=== PATIENT | male | born 1965 | race Caucasian/White ===

== ENCOUNTER 2020-05-04 01:09 | Emergency (ER) | payer OTHER, SELFPAY ==
[2020-05-04 01:13] VITALS: BP 152/87; PULSE 106; RESP 22; TEMP 37.2; O2SAT 99; BMI 50.0
--- NOTE | 2020-05-04 01:45 | ED_ITS ---
HPI - Back Pain/Injury General Chief Complaint: Back Pain/Injury Stated Complaint: Back Pain Time Seen by Provider: 05/04/20 01:44 Source: patient Mode of arrival: ambulatory Limitations: no limitations History of Present Illness HPI Narrative: Patient obese 350 lb noticed lower lumbar pain after showing his car out of snow 2 days ago pain is getting worse no radiation of pain to the legs no bowel or bladder incontinence patient on Suboxone and pain is not getting better patient has chronic lymphedema of the legs which are stable denied any rib pain but feels short of breath , because of pain in lower back. patient denies any rib pain as such MD elicited complaint: back pain Pertinent past history: recent trauma Onset (ago): day(s) (2) Timing: constant Severity: moderate Similar Symptoms Previously: No Quality: dull Location: lumbar spine Radiation: other (Lower back) Exacerbating factors: movement Relieving factors: none Related Data Home Medications Medication Instructions Recorded Confirmed buprenorphine 8 mg-naloxone 2 mg 0 mg SUBLINGUAL 02/20/20 sublingual film bupropion HCl 100 mg tablet,12 hr 100 mg PO QAM 02/20/20 sustained-release bupropion HCl 150 mg tablet,12 hr 150 mg PO QAM 02/20/20 sustained-release duloxetine 30 mg capsule,delayed 30 mg PO DAILY 02/20/20 release duloxetine 60 mg capsule,delayed 60 mg PO DAILY 02/20/20 release ibuprofen 800 mg tablet 800 mg PO TID 02/20/20 levofloxacin 750 mg tablet 750 mg PO DAILY 02/20/20 levothyroxine 88 mcg tablet 88 mcg PO DAILY 02/20/20 lisinopril 20 mg tablet mg PO 02/20/20 meclizine 25 mg tablet 25 mg PO TID PRN 02/20/20 methocarbamol 750 mg tablet 750 mg PO TID 02/20/20 Previous Rx's Medication Instructions Recorded doxycycline hyclate 100 mg tablet 100 mg PO BID #20 tab 02/20/20 prednisone 60 mg PO DAILY #15 tab 05/04/20 tramadol 50 mg PO Q6H PRN #20 tab 05/04/20 Allergies Allergy/AdvReac Type Severity Reaction Status Date / Time allopurinol [ALLOPURINOL] Allergy Unknown RASH Unverified 02/20/20 14:29 blueberry [BLUEBERRY] Allergy Unknown UNKNOWN Unverified 10/12/20 14:29 latex [LATEX] Allergy Unknown RASH Unverified 02/20/20 14:29 DRAGON FRUIT Allergy Unknown HIVES Uncoded 02/20/20 14:29 dragon fruit Allergy Unknown unknown Uncoded 02/20/20 14:29 sports tape Allergy Unknown unknown Uncoded 02/20/20 14:29 Review of Systems Review of Systems: Constitutional : No Weight loss, No Fever, No Chills ENT/Mouth : No sore throat, No Rhinorrhea Eyes: No Eye Pain, No Swelling Cardiovascular : No Chest Pain, no palpitations Respiratory : No Cough, No Sputum, no shortness of breath Gastrointestinal : no Nausea, No Vomiting, No Diarrhea, No abdominal Pain, no black stools Genitourinary : No Dysuria, No Urinary Frequency Musculoskeletal : No joint pain, No Myalgias, No Joint Swelling Skin : No Skin Lesions, No rash chronic lymphedema bilateral legs Neuro : No Weakness, No Numbness, No Dizziness, No Headache Psych : No Anxiety/Panic, No Depression Heme/Lymph: No Bruising, No Lymphadenopathy Endocrine : No Polyuria, No Polydipsia All other systems reviewed and are negative [facility] Social History Social History Advance Directives: No Advance Directives Information Provided: No Physical Exam Vital Signs: Vital Signs: Last Vital Signs Temp 98.9 F 05/04/20 01:13 Pulse 106 H 05/04/20 01:13 Resp 18 05/04/20 02:49 BP 152/87 H 05/04/20 01:13 Pulse Ox 99 05/04/20 01:13 Body Mass Index 50.0 Const: General: acute distress moderate Nutritional Appearance: obese and overweight Orientation/consciousness: oriented to person, oriented to place, oriented to time and patient oriented x3 HENMT: Head: Yes normal to inspection, Yes normocephalic and Yes atraumatic Eyes: General: appearance normal, both eyes and all related structures Neck: Neck: Yes normal visual inspection and Yes full ROM Chest: Chest palpation & inspection: normal inspection of the chest, normal palpation of entire chest wall, no crepitus and no localized rib tenderness Resp: Effort & Inspection: normal respiratory effort Auscultation: clear to auscultation bilaterally, no crackles and no rales Cardio: Palpation: normal PMI Rate: regular rate Rhythm: regular rhythm Heart sounds: S1 normal heart sound present and S2 normal heart sound present GI: Inspection: Yes normal to inspection Palpation (GI): Soft to palpation and nontender : General: Yes no CVA tenderness Back/Spine/Pelvis: Back: no CVA tenderness Thoracic/Lumbar Spine: straight leg raise negative bilaterally, thoraco-lumbar spasm, No thoracic spinal tenderness, lumbar spinal tenderness at L3 and at L4 and No straight leg raise positive Pelvis: no pain with anterior-posterior compression Neuro: General: oriented to person, oriented to place, oriented to time, patient oriented x3, gait normal, tone normal, moves all extremities and Normal light touch and pain sensation Extrem: General: Yes pedal edema (Lymphedema bilateral 4+) Course Course Course Narrative: Patient status post mechanical fall with questionable T11 subcortical changes no acute fracture no height loss no neuro deficit patient is ambulatory in the ER will discharge patient home advised to follow with PCP MDM - Back Pain/Injury Medical Records Attestation: I reviewed the patient's medical records. Lab Data Attestation: I reviewed the patient's lab results. Labs: Lab Results 05/04/20 Range/Units 02:55 Urine Color YELLOW Urine Appearance CLEAR Urine pH 6.0 (5.0-8.0) Ur Specific [place] 1.020 (1.005-1.025) Urine Protein NEG (NEG-TRACE) MG/DL Urine Glucose (UA) NEG (NEG) MG/DL Urine Ketones NEG (NEG) MG/DL Urine Blood NEG (NEG) Urine Nitrite NEG (NEG) Ur Leukocyte Esterase NEG (NEG) Discharge Plan Discharge Clinical Impression: Strain of lumbar region Qualifiers: Encounter type: initial encounter Qualified Code(s): S39.012A - Strain of muscle, fascia and tendon of lower back, initial encounter Patient Disposition: Home, Self-Care Instructions: Acute Low Back Pain (ED) Additional Instructions: apply ICE, continue pain medication take muscle relaxant and prednisone as advised follow with PCP Prescriptions: New prednisone 20 mg tablet 60 mg PO DAILY Qty: 15 RF: 0 tramadol 50 mg tablet 50 mg PO Q6H PRN (Reason: pain) Qty: 20 RF: 0 No Action lisinopril 20 mg tablet PO RF: 0 buprenorphine-naloxone 8-2 mg film 0 mg sublingual RF: 0 bupropion HCl 150 mg tablet sustained-release 12 hr 150 mg PO QAM RF: 0 duloxetine 30 mg capsule,delayed release(DR/EC) 30 mg PO DAILY RF: 0 bupropion HCl 100 mg tablet sustained-release 12 hr 100 mg PO QAM RF: 0 methocarbamol 750 mg tablet 750 mg PO TID RF: 0 ibuprofen 800 mg tablet 800 mg PO TID RF: 0 levofloxacin 750 mg tablet 750 mg PO DAILY RF: 0 meclizine 25 mg tablet 25 mg PO TID PRNRF: 0 duloxetine 60 mg capsule,delayed release(DR/EC) 60 mg PO DAILY RF: 0 levothyroxine 88 mcg tablet 88 mcg PO DAILY RF: 0 doxycycline hyclate 100 mg tablet 100 mg PO BID Qty: 20 RF: 0
--- NOTE | 2020-05-04 02:21 | CT_ITS ---
EXAMINATION: CT LUMBAR SPINE WITHOUT CONTRAST CLINICAL INFORMATION: Pain after fall. COMPARISON: Chest CT from 01/08/2019. TECHNIQUE: Contiguous helical images of the lumbar spine were obtained without IV contrast. Multiplanar constructions were performed. This CT examination was performed using dose optimization techniques as appropriate, variously including the following: *Automated exposure control *Adjustment of mA and/or kV according to patient size (this includes techniques or standardized protocols for targeted exams where dose is matched to indication/reason for exam; i.e. extremities or head) *Use of iterative reconstruction technique DLP; 1596 mGy-cm FINDINGS: The visualized lung bases are clear. There is no abdominal free fluid. Visualized unopacified loops of small amount bowel are unremarkable. There are a few layering foci of high density within the gallbladder lumen. There is no gallbladder wall thickening or pericholecystic fluid. Both kidneys are of normal size and attenuation without hydronephrosis or nephrolithiasis. The lumbar vertebra are in normal alignment. Disc heights and vertebral body heights are well-preserved. There is subtle cortical irregularity to the superior endplate of T11 without demonstrable height loss. There is quite subtle anterior vertebral body cortical buckling. CT/CT lumbar spine wo con IMPRESSION: Quite subtle cortical irregularity to the superior endplate and superior aspect of the anterior cortex to the T11 vertebral body. There is no vertebral body height loss or adjacent soft tissue swelling. A subtle fracture is difficult to exclude at this level. Overall, lower thoracic and lumbar spine vertebral body and disc heights are well-preserved.
--- NOTE | 2020-05-04 02:21 | XR_ITS ---
EXAMINATION: CHEST 2 VIEWS CLINICAL INFORMATION: Pain after fall. COMPARISON: 01/08/2019. TECHNIQUE: PA and lateral views of the chest were obtained. FINDINGS: The cardiac silhouette is not enlarged. The mediastinal and hilar contours are unremarkable. There are neither pleural effusions nor pneumothoraces. There is a stable appearance of mild interstitial prominence throughout both lungs. There are no consolidations. The osseous structures are stable. XR/XR chest 2V IMPRESSION: No evidence for acute disease.
[2020-05-04 02:49] VITALS: RESP 18
[2020-05-04] MEDS: Morphine Sulfate 10 MG/ML CARTRIDGE IM (02:49)
[2020-05-04] MEDS: dexAMETHasone 2 MG TABLET 10 MG PO (02:50)
[2020-05-04 03:12] LABS: Glucose Urine UA NEG (NEG); Leukocyte Esterase Urine NEG (NEG); Nitrite Urine NEG (NEG); Urine Blood NEG (NEG); Urine Ketones NEG (NEG); Urine Protein NEG (NEG-TRACE)
[2020-05-04 03:28] LABS: Appearance Urine CLEAR; Color Urine YELLOW
[2020-05-04 04:00] VITALS: BP 147/69; PULSE 87; RESP 22; TEMP 37.2; O2SAT 96
== END 2020-05-04 05:00 | disposition home or self-care (01) ==
PROVIDERS: Emergency Provider Internal Medicine; PCP Internal Medicine
DX: S39.012A Strain of muscle, fascia and tendon of lower back, initial encounter (principal); X50.9XXA Other and unspecified overexertion or strenuous movements or postures, initial encounter; Y93.H1 Activity, digging, shoveling and raking; Y92.007 Garden or yard of unspecified non-institutional (private) residence as the place of occurrence of the external cause; Y99.9 Unspecified external cause status; Z79.899 Other long term (current) drug therapy
CPT/HCPCS: 71046; 72131; 81003; 96372; 99284; J2270; J8540

== ENCOUNTER 2020-05-08 13:29 | Emergency (ER) | payer OTHER, SELFPAY ==
[2020-05-08 13:47] VITALS: BP 150/83; PULSE 76; RESP 16; TEMP 36.6; O2SAT 96; BMI 50.0
--- NOTE | 2020-05-08 13:55 | ED_ITS ---
HPI - Back Pain/Injury General Chief Complaint: Back Pain/Injury Stated Complaint: BACK SPASM Time Seen by Provider: 05/08/20 13:44 History of Present Illness HPI Narrative: Patient complains of back spasms for the last several days, he was here on May 04 after a fall which caused him to have lower back pain any came to the ER and at that time he had a CT scan of the lumbar spine which was negative for any fracture and he was treated with pain medicine and was able to ambulate and go home, he has a cane at home and was using that Today he was walking with his cane and felt a lot of spasm in his lower back and the pain was sharp and he had to lower himself to the floor, he could not get up and was stuck there for about 2 hours and then decided to call 911 and was transported here by EMT is a with severe back spasm He denies numbness weakness paresthesias, there is no new injury, no head injury no neck pain, no changes to bowel or bladder, no incontinence Related Data Home Medications Medication Instructions Recorded Confirmed buprenorphine 8 mg-naloxone 2 mg 0 mg SUBLINGUAL 02/20/20 sublingual film bupropion HCl 100 mg tablet,12 hr 100 mg PO QAM 02/20/20 sustained-release bupropion HCl 150 mg tablet,12 hr 150 mg PO QAM 02/20/20 sustained-release duloxetine 30 mg capsule,delayed 30 mg PO DAILY 02/20/20 release duloxetine 60 mg capsule,delayed 60 mg PO DAILY 02/20/20 release ibuprofen 800 mg tablet 800 mg PO TID 02/20/20 levofloxacin 750 mg tablet 750 mg PO DAILY 02/20/20 levothyroxine 88 mcg tablet 88 mcg PO DAILY 02/20/20 lisinopril 20 mg tablet mg PO 02/20/20 meclizine 25 mg tablet 25 mg PO TID PRN 02/20/20 methocarbamol 750 mg tablet 750 mg PO TID 02/20/20 Previous Rx's Medication Instructions Recorded doxycycline hyclate 100 mg tablet 100 mg PO BID #20 tab 02/20/20 prednisone 60 mg PO DAILY #15 tab 05/04/20 tramadol 50 mg PO Q6H PRN #20 tab 05/04/20 diazepam [Valium] 10 mg PO TID PRN #10 tab 05/08/20 oxycodone-acetaminophen [Percocet] 1 tab PO Q6H PRN #14 tab 05/08/20 walker #1 ea 05/08/20 Allergies Allergy/AdvReac Type Severity Reaction Status Date / Time allopurinol [ALLOPURINOL] Allergy Unknown RASH Verified 05/08/20 16:27 blueberry [BLUEBERRY] Allergy Unknown UNKNOWN Verified 05/08/20 16:27 latex [LATEX] Allergy Unknown RASH Verified 05/08/20 16:27 DRAGON FRUIT Allergy Unknown HIVES Uncoded 02/20/20 14:29 dragon fruit Allergy Unknown unknown Uncoded 02/20/20 14:29 sports tape Allergy Unknown unknown Uncoded 02/20/20 14:29 Review of Systems Review of Systems: Positive for back pain No numbness no weakness no paresthesias no changes to bowel or bladder no incontinence no head injury no headache no neck pain no rib pain no difficulty breathing no chest pain no abdominal pain Yes all other systems are reviewed and are negative [facility] Past Medical History Attestation statement: The following information was validated with the patient. [facility] Narrative: Back pain, obesity Source: nursing notes reviewed Social History Social History Alcohol intake: never Smoking Status: Former smoker Use of substances other than those prescribed or required for medical reasons: No Advance Directives: No Advance Directives Information Provided: Yes Physical Exam Vital Signs: Vital Signs: Last Vital Signs Temp 98 F 05/08/20 13:47 Pulse 80 05/08/20 16:00 Resp 18 05/08/20 16:00 BP 136/80 05/08/20 16:00 Pulse Ox 95 05/08/20 16:00 Body Mass Index 50.0 Patient is A&O x3, cooperative but uncomfortable Head is normocephalic atraumatic Neck is supple and nontender The chest is nontender with clear full symmetric equal breath sounds The abdomen is soft nontender The back had bilateral paraspinal tenderness there was no focal tenderness of any vertebrae there was no CVA tenderness there is no ecchymosis to the back, the skin was intact, pain was easily reproduced with movement but when patient finds a comfortable position lying down he is comfortable The skin was intact with no rash Extremities there is bilateral lymphedema in legs, full range of motion x4 Neuro no focal deficit his speech is appropriate interaction is normal, motor is 5/5 x4, gait could not be tested as it was too painful to get out of bed Course Course Course Narrative: The patient was treated with analgesics and muscle relaxer and felt significantly improved and was able to sit up stand up and ambulate with a walker safely He had initially inquired about going to a rehab but when informed that he would have to stay in the ER overnight as physical therapy assessment and finding a placement could not happen at this hour of the day he said he would try at home, and was discharged improved and able to ambulate safely with a walker Discharge Plan Discharge Clinical Impression: Strain of lumbar region Qualifiers: Encounter type: subsequent encounter Qualified Code(s): S39.012D - Strain of muscle, fascia and tendon of lower back, subsequent encounter Patient Disposition: Home, Self-Care Additional Instructions: We could not get you into a rehab today so we are trying to get you home with pain medication and muscle spasm medication You can return any time for any worse condition or concerns If you are unable to function safely at home you can return any time Prescriptions: New (DME) walker Misc See Rx Instructions .ROUTE .MEDSUPPLY Qty: 1 RF: 0 oxycodone-acetaminophen [Percocet] 5-325 mg tablet 1 tab PO Q6H PRN (Reason: pain) Qty: 14 RF: 0 diazepam [Valium] 10 mg tablet 10 mg PO TID PRN (Reason: muscle spasm) Qty: 10 RF: 0 No Action prednisone 20 mg tablet 60 mg PO DAILY Qty: 15 RF: 0 tramadol 50 mg tablet 50 mg PO Q6H PRN (Reason: pain) Qty: 20 RF: 0 lisinopril 20 mg tablet PO RF: 0 buprenorphine-naloxone 8-2 mg film 0 mg sublingual RF: 0 bupropion HCl 150 mg tablet sustained-release 12 hr 150 mg PO QAM RF: 0 duloxetine 30 mg capsule,delayed release(DR/EC) 30 mg PO DAILY RF: 0 bupropion HCl 100 mg tablet sustained-release 12 hr 100 mg PO QAM RF: 0 methocarbamol 750 mg tablet 750 mg PO TID RF: 0 ibuprofen 800 mg tablet 800 mg PO TID RF: 0 levofloxacin 750 mg tablet 750 mg PO DAILY RF: 0 meclizine 25 mg tablet 25 mg PO TID PRNRF: 0 duloxetine 60 mg capsule,delayed release(DR/EC) 60 mg PO DAILY RF: 0 levothyroxine 88 mcg tablet 88 mcg PO DAILY RF: 0 doxycycline hyclate 100 mg tablet 100 mg PO BID Qty: 20 RF: 0
[2020-05-08 14:00] VITALS: BP 150/83; PULSE 70; RESP 18; O2SAT 98
[2020-05-08] MEDS: oxyCODONE HCl Immed Release 5 MG TABLET 10 MG PO (14:45)
[2020-05-08] MEDS: diazePAM 5 MG TABLET 10 MG PO (14:49)
--- NOTE | 2020-05-08 15:02 | PC.NURSE ---
Report received from Jose VELIZ. Patient reports 4/10 pain without movement at this time. Patient appears uncomfortable when moving. Respirations regular and even. Skin PWD. Will continue to monitor.
[2020-05-08 16:00] VITALS: BP 136/80; PULSE 80; RESP 18; O2SAT 95
--- NOTE | 2020-05-08 16:13 | PC.NURSE ---
Addendum entered by Karin Norris 05/08/20 17:05: Patient got out of bed using walker and able to ambulate around with steady gait. Patient now choosing to be discharged home. Original Note: Attempted to get patient to try and ambulate, patient reports talking to family and is now requesting short term rehab.
[2020-05-08] MEDS: oxyCODONE HCl Immed Release 5 MG TABLET PO (16:55)
== END 2020-05-08 17:06 | disposition home or self-care (01) ==
PROVIDERS: Emergency Provider Emergency Medicine Emergency Medical Services; PCP Internal Medicine
DX: S39.012A Strain of muscle, fascia and tendon of lower back, initial encounter (principal); M54.2 Cervicalgia; X58.XXXA Exposure to other specified factors, initial encounter; Y93.9 Activity, unspecified; Y92.9 Unspecified place or not applicable; Y99.9 Unspecified external cause status; Z79.899 Other long term (current) drug therapy; Z87.891 Personal history of nicotine dependence
CPT/HCPCS: 99283; 99284

== ENCOUNTER 2020-05-12 15:59 | Emergency (ER) | payer OTHER, SELFPAY ==
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
[2020-05-12 16:24] VITALS: BP 137/87; BP 159/93; PULSE 82; RESP 22; TEMP 36.1; O2SAT 95; O2SAT 96; BMI 50.5
--- NOTE | 2020-05-12 17:13 | PC.NURSE ---
Pt changed into hospital attire and belongings searched and placed into lockers in pod by cardiac cath tech. Pt calm and cooperative at this time.
[2020-05-12 17:16] LABS: Basophils Percent Auto 0.4 % (0-2); Eosinophils Absolute Auto 0.4 X10*3/uL (0.0-0.4); Eosinophils Percent Auto 3.7 % (0-4); Hemoglobin 12.9 g/dl (14.0-18.0); Imm Gran Abs Auto 0.04 X10*3/uL (0.00-0.03); Imm Gran Pct Auto 0.4 % (0.0-0.4); Lymphocytes Absolute Auto 2.3 X10*3/uL (1.2-4.9); Lymphocytes Percent Auto 21.2 % (20-40); Mean Corpuscular HGB Conc 32.3 g/dl (31.0-36.0); Mean Corpuscular Hemoglobin 27.8 pg (27.0-33.0); Mean Corpuscular Volume 86.2 fL (80-98); Mean Platelet Volume 10.2 fL (9.4-12.4); Monocytes Absolute Auto 0.7 X10*3/uL (0.1-1.2); Monocytes Percent Auto 6.8 % (2-11); Neutrophils Absolute Auto 7.2 X10*3/uL (2.0-8.3); Neutrophils Percent Auto 67.5 % (45-73); Platelet Count 259 X10*3/uL (160-400); Red Blood Count 4.64 X10*6/uL (4.60-5.80); White Blood Count 10.6 X10*3/uL (4.8-10.8)
[2020-05-12] MEDS: diazePAM 5 MG TABLET PO ×2 (17:16→21:44)
[2020-05-12 17:18] LABS: MANUAL DIFF FLAG NO
[2020-05-12 17:31] LABS: COVID-19 Test Negative (Negative)
[2020-05-12 17:40] LABS: Alanine Aminotransferase 22 U/L (0-40); Albumin Level 3.5 g/dL (3.5-5.0); Alkaline Phosphatase 60 U/L (39-117); Anion Gap 14 (12-20); Aspartate Amino Transferase 16 U/L (5-37); Bilirubin Direct 0.3 mg/dL (0.0-0.5); Bilirubin Total 0.5 mg/dL (0.0-1.0); Blood Urea Nitrogen 11 mg/dL (9-16); Calcium 8.7 mg/dL (8.4-10.2); Carbon Dioxide 29 mmol/L (22-29); Chloride 99 mmol/L (96-108); Creatinine Clr Calc Pharmacy 185.3; Estimated Glomerular Filt Rate > 60; Glucose Random 118 mg/dL (60-115); Potassium 3.7 mmol/l (3.3-5.1); Sodium 138 mmol/L (135-145); Total Protein 6.5 g/dL (6.5-8.0)
--- NOTE | 2020-05-12 18:41 | PC.NURSE ---
[facility] contacted for update. Bed search in progress. Fax sent to them including results of labs obtained during this visit. Pt ate dinner and is now resting in stretcher with eyes closed.
--- NOTE | 2020-05-12 19:17 | PC.NURSE ---
Pt ambulated to bathroom with security. Steady gait using a walker.
[2020-05-12] MEDS: oxyCODONE HCl Immed Release 5 MG TABLET PO (19:31)
[2020-05-12] MEDS: Lidocaine 4 % Patch ADH..PATCH 2 PATCH TRANSDERMA (19:33)
[2020-05-12 20:00] VITALS: BP 118/81; PULSE 80; RESP 18; TEMP 36.8; O2SAT 97
--- NOTE | 2020-05-12 21:04 | PC.NURSE ---
Patient given Lido patches and oxycodone with some relief of pain, still reports painful spasms. States the Valium helped the most with that. Plan to give when due.
[2020-05-12 21:49] VITALS: BP 141/91; PULSE 78; RESP 20; TEMP 36.7; O2SAT 94
--- NOTE | 2020-05-12 22:25 | PC.NURSE ---
Urine sent down. Pt ambulated to bathroom with walker and security.
[2020-05-12 22:34] LABS: Glucose Urine UA NEG (NEG); Leukocyte Esterase Urine NEG (NEG); Nitrite Urine NEG (NEG); Specific Gravity - Urine <= 1.005 (1.005-1.025); Urine Blood NEG (NEG); Urine Ketones NEG (NEG); Urine Protein NEG (NEG-TRACE)
[2020-05-12 22:35] LABS: Appearance Urine CLEAR; Color Urine YELLOW
[2020-05-12 23:01] LABS: Amphetamine Screen Urine Not Detected (Not Detect); Barbiturates, Urine Not Detected (Not Detect); Benzodiazepines Screen Urine POSITIVE (Not Detect); Cannabinoid Screen Urine Not Detected (Not Detect); Cocaine Screen Urine Not Detected (Not Detect); Opiate Screen Urine Not Detected (Not Detect); Phencyclidine Screen Urine Not Detected (Not Detect)
--- NOTE | 2020-05-12 23:03 | PC.NURSE ---
Report received. PT is laying in bed quietly. Calm and cooperative. PT is inpatient bed search.
[2020-05-13] VITALS (9 sets, daily range): BP systolic 131–151; BP diastolic 68–94; PULSE 18–92; RESP 14–18; TEMP 36.4–37.1; O2SAT 92–96
[2020-05-13] MEDS: oxyCODONE HCl Immed Release 5 MG TABLET PO ×3 (03:00→17:32)
[2020-05-13] MEDS: diazePAM 5 MG TABLET PO ×2 (04:14→11:59)
--- NOTE | 2020-05-13 06:56 | PC.NURSE ---
PT complaining of back spasms this morning. PRN diazepam was not available. Provider notified and ordered one time dose that should count towards his first dose for today. Med given to PT.
--- NOTE | 2020-05-13 07:05 | PC.NURSE ---
REPORT TAKEN FORM LAUREN VELIZ. PT SLEEPING AT THIS TIME. STAFF ABLE TO SEE PATIENT AT ALL TIMES.
--- NOTE | 2020-05-13 11:39 | PC.NURSE ---
patient a&ox3, currently watching tv, vitals stable, pt states his back continues to hurt and nothing really helps it 12/18 pain, will continue to monitor
--- NOTE | 2020-05-13 11:56 | PC.NURSE ---
patient ambulated with stby assist and walker to bathroom, patient c/o 12/18 lower back pain/spasms
--- NOTE | 2020-05-13 12:01 | PC.NURSE ---
PT MEDICATED WITH VALIUM PER ORDER, PT ALSO NO LONGER HAS LIDO PATCHES ON BACK- THEY HAD BEEN PREVIOUSLY REMOVED.
--- NOTE | 2020-05-13 16:28 | PC.NURSE ---
patient currently sleeping, RR 18
--- NOTE | 2020-05-13 17:35 | PC.NURSE ---
patient oob to chair with assist, medicated for pain, vss, will continue to monitor.
--- NOTE | 2020-05-13 22:09 | PC.NURSE ---
patient currently sleeping, sitter at bedside, rr 18, will continue to monitor.
[2020-05-14] VITALS (10 sets, daily range): BP systolic 116–142; BP diastolic 65–88; PULSE 16–89; RESP 14–18; TEMP 36.3–36.5; O2SAT 94–96
[2020-05-14] MEDS: oxyCODONE HCl Immed Release 5 MG TABLET PO ×2 (06:20→12:46)
[2020-05-14] MEDS: diazePAM 10 MG TABLET PO (06:20)
[2020-05-14] MEDS: buPROPion HCl XL 150 MG TAB.ER.24H PO (10:31)
[2020-05-14] MEDS: DULoxetine HCl 30 MG CAPSULE.DR PO (10:31)
[2020-05-14] MEDS: lisinopriL 20 MG TABLET PO (10:32)
[2020-05-14] MEDS: Levothyroxine Sodium 88 MCG TABLET PO (10:32)
[2020-05-14] MEDS: Cyclobenzaprine HCl 10 MG TABLET PO (10:32)
[2020-05-14] MEDS: DULoxetine HCl 60 MG CAPSULE.DR PO (10:32)
[2020-05-14] MEDS: diazePAM 5 MG TABLET PO (12:47)
--- NOTE | 2020-05-14 17:33 | PC.NURSE ---
Pt is drwsy but easily arousable. pt has been evaluated by care team, there are concerns over pt's adl ability due to recent back injury and his appropriatness for m5. plan is to have Physical therapy eval in am. sitter is maintained at bedside pt denies need to use bathroom at this time. pt is clam and cooperative, speaks in clear and even tones and mainitains appropRIATE EYE CONTACT.
--- NOTE | 2020-05-14 21:01 | PC.NURSE ---
pt wakes to voice, looks at clock and is surprised by the time. he states wow, yariel been sleeping a long time. pt didn't realize he hadn't had dinner, will reheat his tray.
--- NOTE | 2020-05-14 21:55 | PC.NURSE ---
PT FALLING ASLEEP EATING DINNER, WILL HOLD FLEXERIL.
[2020-05-14] MEDS: Docusate Sodium 100 MG CAPSULE PO (23:22)
--- NOTE | 2020-05-14 23:56 | PC.NURSE ---
PT DOES NOT FEEL HE NEEDS OXY OR FLEXERIL AT THIS TIME, LIDO PATCH X2 APPLIED TO BACK.
[2020-05-14] MEDS: Lidocaine 4 % Patch ADH..PATCH 1 PATCH TRANSDERMA (23:57)
[2020-05-15] VITALS (8 sets, daily range): BP systolic 113–133; BP diastolic 61–81; PULSE 79–93; RESP 16–18; TEMP 36.4–36.6; O2SAT 92–97
[2020-05-15] MEDS: oxyCODONE HCl Immed Release 5 MG TABLET PO ×2 (02:25→09:16)
[2020-05-15] MEDS: buPROPion HCl XL 150 MG TAB.ER.24H PO (09:15)
[2020-05-15] MEDS: DULoxetine HCl 30 MG CAPSULE.DR PO (09:15)
[2020-05-15] MEDS: Levothyroxine Sodium 88 MCG TABLET PO (09:15)
[2020-05-15] MEDS: Docusate Sodium 100 MG CAPSULE PO ×2 (09:16→21:48)
[2020-05-15] MEDS: lisinopriL 20 MG TABLET PO (09:16)
[2020-05-15] MEDS: DULoxetine HCl 60 MG CAPSULE.DR PO (09:16)
--- NOTE | 2020-05-15 15:06 | MHC.CM.ED ---
Received case management consult. Patient came to ER on 05/12 due to SI. Patient was cleared by N. Patient experienced a compression fracture on 05/03 from slipping while shoveling. Patient has been on Suboxone for chronic pain management. He hasn't taken his suboxone for 4 days because of requiring oxycodone for his acute fracture pain. Patient was seen by physical therapy. Short term rehab is recommended. Attempted to meet with patient. However he is sleeping. Anticipate patient will be difficult to place. Referral broadcasted in [email or web address]. [facility] is willing to offer a bed. However, due to SI, PASRR letter will be needed. Insurance auth will also need to be obtained by [employer] [employer]. [facility] is attempting to obtain insurance auth. PASRR screen completed and faxed to [facility]. Continue to monitor for d/c needs.
[2020-05-15] MEDS: Cyclobenzaprine HCl 10 MG TABLET PO ×2 (21:48→23:06)
[2020-05-16 03:15] VITALS: BP 141/85; PULSE 80; RESP 18; TEMP 36.4; O2SAT 94
[2020-05-16 04:00] VITALS: RESP 16
[2020-05-16 05:56] VITALS: BP 134/80; PULSE 86; RESP 18; TEMP 36.8; O2SAT 94
--- NOTE | 2020-05-16 06:41 | PC.NURSE ---
pt slept thur the night no distress rr even and reg. needs met at bedside sitter present.
[2020-05-16 08:28] VITALS: BP 129/74; PULSE 88
[2020-05-16] MEDS: DULoxetine HCl 60 MG CAPSULE.DR PO (08:28)
[2020-05-16] MEDS: Cyclobenzaprine HCl 10 MG TABLET PO (08:28)
[2020-05-16] MEDS: lisinopriL 20 MG TABLET PO (08:28)
[2020-05-16] MEDS: DULoxetine HCl 30 MG CAPSULE.DR PO (08:30)
[2020-05-16] MEDS: Levothyroxine Sodium 88 MCG TABLET PO (08:30)
[2020-05-16] MEDS: Docusate Sodium 100 MG CAPSULE PO (08:30)
[2020-05-16] MEDS: buPROPion HCl XL 150 MG TAB.ER.24H PO (08:30)
[2020-05-16 08:31] VITALS: BP 129/74; PULSE 88; RESP 18
--- NOTE | 2020-05-16 09:07 | MHC.CM.ED ---
Patient remains in ER. PASRR exemption letter obtained from [facility]. Still waiting for [facility] to obtain insurance. Attempted to meet with patient to explain this. Patient currently sleeping. Continue to monitor for d/c needs.
[2020-05-16 10:36] LABS: COVID-19 Test Negative (Negative); IDNOW Serial# 9DD0AD1C
--- NOTE | 2020-05-16 10:58 | MHC.CM.ED ---
Insurance auth has been obtained by [facility]. Patient can leave at 1pm, if new Covid is negative. Attempted to book transport with [facility]. They are unable to accomodate until 5pm. [facility] booked. Med nec with chart. Attempted to let patient know. Patient is currently sleeping. Patient's sister Alesia notified via telephone at [phone]. Alesia verbalized understanding. Dr Angel and Dell Ng aware. Continue to monitor for d/c needs.
[2020-05-16 11:47] VITALS: BP 145/76; PULSE 77; O2SAT 98
== END 2020-05-16 13:32 | disposition skilled nursing facility (03) ==
PROVIDERS: Emergency Provider Emergency Medicine
DX: F33.9 Major depressive disorder, recurrent, unspecified (principal); R45.851 Suicidal ideations; M62.830 Muscle spasm of back; Z20.828 Contact with and (suspected) exposure to other viral communicable diseases; I10 Essential (primary) hypertension; F43.10 Post-traumatic stress disorder, unspecified; F17.200 Nicotine dependence, unspecified, uncomplicated
CPT/HCPCS: 36415; 80048; 80076; 80307; 81003; 85025; 87635; 97162; 99285

== ENCOUNTER 2020-06-27 08:30 | Outpatient (RCR) | payer OTHER, SELFPAY ==
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
[2020-06-04 15:10] VITALS: BMI 45.0
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
--- NOTE | 2020-06-07 09:51 | PC.NURSE ---
I left a message for the clients therapist Davey Stephens to inform him that the client has started PHP. I requested a call back.
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
--- NOTE | 2020-06-18 17:05 | P.PNPSP_ITS ---
Subjective Subjective Date of Service: 06/18/20 Reason For Visit: depression Interim History: Adolfo reports a very difficult 24 hours. States yesterday his Si was the strongest it had been since 1990. He is having many PTSD like nightmares. He awoke crying, wrote a suicide note and was able to reach out to crisis and found it helpful. States he decreased Cymbalta to 60 mg, stopped Prozac, Buspirone, Wellbutrin over the last month. His desire to drink has increased, however he reports he has not broken sobriety. He denies active SI plan or intent currently. Reports racing thoughts, unable to stop or control them, some agitation hypomanic type symptoms. OP team/PHP has not refilled meds. Discussed mood stabilizer trial for mgt of SI,racing thoughts. Medication Compliance: No Side effects from medications: No Attending Groups: Yes Review of Systems Psychiatric: Reports abnormal sleep pattern (nightmares), Reports anxiety, Reports depression, Reports difficulty concentrating, Reports hopelessness and Reports mood swings Mental Status Exam Mental Status Exam Patient Orientation: Person, Place, Time and Situation Level of Consciousness: Awake and Alert Patient Behavior: Talkative Mood Description: Depressed Affect Description: Labile (reports) and Flat Patient Cognition Impaired: No Ability to Follow Directions: Good Speech Pattern: Spontaneous Speech Memory Description: Intact Hallucinations: None Delusions: Not Present Perceptual Disturbances: Depersonalization Thought Process: Racing, Distracted and Rumination Thought Content: positive for Racing, positive for [place] and positive for Circumstantial Depressive Symptoms: Increased Anxiety, Increased Irritability, Difficulty Sleeping (nightmares), Loss of Int. in Activity, Hopelessness, Unhappiness, Thoughts of /Suicide (SI intense on 06/17. Today, passive, no plan, no intent) and Loss of Energy Judgement: Fair Diagnostics Vital Signs (24Hr): Body Mass Index 45.0 Assessment & Plan Assessment & Plan (1) MDD (major depressive disorder), recurrent episode, moderate: Status: Acute Code(s): F33.1 - Major depressive disorder, recurrent, moderate Assessment and Plan: -Reports of intense SI, stopping [id number] Cymbalta 60 mg. -Discussed with pt trial of [place] 300 mg hs to assist with racing thoughts, mood stabilization, mgt of SI. He agreed. Small amt sent to pharmacy for trial. Will talk with pt again on 06/21/20. Crisis plan in place. At this time pt is able to contract for safety and will call crisis or come to ER for assessment should sx increase. Certification I certify that partial hospital treatment is medically necessary due to the sy mptoms and problems resulting from the patient's mental illness and the failure to treat the patient at the partial hospital level of care would likely result in the patient requiring inpatient psychiatric care which could not be prevented at a less intensive level of care. Greater than 50% of the session was spent on counseling and/or coordination of care Discharge Plan Discharge Attending provider: Senthil Ang Medications: New lithium carbonate 300 mg capsule 300 mg PO BEDTIME Qty: 4 RF: 0 Discontinued bupropion HCl 75 mg Tablet 75 mg PO DAILY RF: 0 duloxetine 30 mg capsule,delayed release(DR/EC) 30 mg PO DAILY RF: 0 No Action (DME) you Misc See Rx Instructions .ROUTE .MEDSUPPLY Qty: 1 RF: 0 testosterone 1.62 % (20.25 mg/1.25 gram) Gel In Packet 1 packet TRANSDERMAL DAILY RF: 0 lisinopril 20 mg tablet 20 mg PO DAILY RF: 0 methocarbamol 750 mg tablet 750 mg PO TID RF: 0 duloxetine 60 mg capsule,delayed release(DR/EC) 60 mg PO DAILY RF: 0 levothyroxine 88 mcg tablet See Rx Instructions .ROUTE .COMPLEX RF: 0 Telehealth Telehealth Location of provider rendering services: practice address Location of patient: address on file Patient Identification confirmed using: Name, : Yes Telehealth method: voice only Patient verbally consented to treatment: Yes Patient verbally consented to billing insurance company: Yes Patient informed of any privacy concerns related to visit: Yes Time spent with patient (mins): 30
--- NOTE | 2020-06-19 12:39 | PC.NURSE ---
Patient has told this abstract writer last week that his family thinks he is on too many medications. Asked patient to review with prescriber. Denied any side effects. Did not mention to this abstract writer that he needed any refills on any of his medications. Called pharmacy today. They have not filled his new prescription for [employer] that was ordered yesterday as they did not get a supply in until today. Patient last filled the following antidepressants Duloxetine 60 mg daily on 06/03/20 for 90 day supply, Fluoxetine 20 mg daily on 06/09/20 # 30 tab, Wellbutrin 75 mg daily on 06/04/20 for 7 day supply, and Trazodone 25 mg 1/2 tab daily PRN on 06/04/20 7 day supply.
--- NOTE | 2020-06-21 09:49 | PC.NURSE ---
Called Adolfo to remind him that he had lab orders that need to be completed. Patient stated his car is not working however he should be able to complete on Thursday. Patient stated he has labs done at [place] (unsure when) and thinks he had labs completed in [facility] recently. Patient did not attend [facility] yesterday as he complained to staff that he had stomach issues. He stated he had diarrhea and his sister went to the store to chicken picker some Imodium and he feels much better today. He stated she also picked up his prescription medications. He has not started [place] at present. Plans on starting once his stomach settles. C/O back pain and stated he is out of pain medications thus he has been using Motrin. Talked about interaction with Motrin and [place]. Also talked about Physical Therapy and patient stated his PCP was making a referral to PT but patient has not been contacted regarding an appointment. I let him know that I will call to f/u.
--- NOTE | 2020-06-21 16:55 | P.PNPSP_ITS ---
Subjective Subjective Date of Service: 06/21/20 Reason For Visit: depression Interim History: Adolfo reports feeling improved. He does report GI distress over the past few days which is resolving. Sleep is too good , reports he does spend a great deal of time in bed. Appetite has decreased, with weight decrease since back injury from 409 to 355. Denies SI plan or intent today. Reviewed events of last Thursday where pt reflects that there is no real reason for me to , I would never do that to my sister, my family, I do want to live a life. Describes his life as good, with needs met and feeling satisfied. Has not initiated [place] which a small rx was given due to sx presentation on Thursday. We discussed why it was given, target sx. He picked it up from pharmacy today and will hold on starting it as sx have ceased and passed. Discussed with pt calling Dr. Fowler-he believes she may be away, but authorizes underwriter solicitation director to continue to attempt to connect. Discussed Cymbalta dosing at current 60 mg vs 90 mg. He will keep it at 60mg reflecting that 90 may not be needed. Medication Compliance: Yes Side effects from medications: No Attending Groups: Yes Review of Systems Gastrointestinal: Reports other (recovering from gasteroenteritis sx over the past few days.) Psychiatric: Reports abnormal sleep pattern, Reports change in appetite and Reports depression Mental Status Exam Mental Status Exam Patient Orientation: Person, Place, Time and Situation Level of Consciousness: Awake and Alert Patient Behavior: Appropriate and Talkative Mood Description: Calm Affect Description: Flat Patient Cognition Impaired: No Ability to Follow Directions: Good Speech Pattern: Spontaneous Speech Memory Description: Intact Hallucinations: None Delusions: Not Present Thought Process: Intact Thought Content: positive for Intact Depressive Symptoms: Changes in Appetite, Sleeping More Than Usual, Significant Weight Loss (reports since back injury 409 to 355), Loss of Int. in Activity and Increased Fatigue Judgement: Good Diagnostics Vital Signs (24Hr): Body Mass Index 45.0 Assessment & Plan Assessment & Plan (1) MDD (major depressive disorder), recurrent episode, moderate: Status: Acute Code(s): F33.1 - Major depressive disorder, recurrent, moderate Assessment and Plan: -Continue Cymbalta 60 mg daily -Pt will not trial [place] as sx have resolved. -Discussed labs with pt-as he has had them with [facility] recently, will not re- order unless he requests. He does not feel it is needed at this time. Certification I certify that partial hospital treatment is medically necessary due to the symptoms and problems resulting from the patient's mental illness and the failure to treat the patient at the partial hospital level of care would likely result in the patient requiring inpatient psychiatric care which could not be prevented at a less intensive level of care. Greater than 50% of the session was spent on counseling and/or coordination of care Discharge Plan Discharge Attending provider: Senthil Ang Medications: Discontinued bupropion HCl 75 mg Tablet 75 mg PO DAILY RF: 0 duloxetine 30 mg capsule,delayed release(DR/EC) 30 mg PO DAILY RF: 0 No Action (DME) you Misc See Rx Instructions .ROUTE .MEDSUPPLY Qty: 1 RF: 0 testosterone 1.62 % (20.25 mg/1.25 gram) Gel In Packet 1 packet TRANSDERMAL DAILY RF: 0 lisinopril 20 mg tablet 20 mg PO DAILY RF: 0 methocarbamol 750 mg tablet 750 mg PO TID RF: 0 duloxetine 60 mg capsule,delayed release(DR/EC) 60 mg PO DAILY RF: 0 levothyroxine 88 mcg tablet See Rx Instructions .ROUTE .COMPLEX RF: 0 Telehealth Telehealth Location of provider rendering services: practice address Location of patient: address on file Patient Identification confirmed using: Name, : Yes Telehealth method: voice only Patient verbally consented to treatment: Yes Patient verbally consented to billing insurance company: Yes Patient informed of any privacy concerns related to visit: Yes Time spent with patient (mins): 20
--- NOTE | 2020-06-22 11:24 | PC.NURSE ---
Patient expressed interest in going to the [facility] in [place] at [phone] for physical therapy for his back pain. According to patient's paperwork from his PCP patient has a hx of a possible subtle fracture in April 2020. Patient asked me to call his PCP office to set up referral for an appointment. Spoke to Kathrin from patient's PCP's office and asked her to review with Dr Jovel the need for a referral to physical therapy and if so refer patient to the [facility].
--- NOTE | 2020-06-27 14:21 | P.PNPSP_ITS ---
Subjective Subjective Date of Service: 06/27/20 Reason For Visit: depression Interim History: [facility] program was very beneficial in that he felt supported by peers and clinicians. He reports groups help with ways to cope with depression and chronic suicidal thoughts. He reports sleep is fair in that he wakes up often but able to sleep at least 6-7hrs. He reports not having suicidal thoughts for about one week. He expresses feeling gratitude for [facility] staff and peers. Review of Systems Gastrointestinal: Reports other (recovering from gasteroenteritis sx over the past few days.) Psychiatric: Reports abnormal sleep pattern, Reports anxiety, Reports change in appetite, Reports depression, Reports difficulty concentrating, Reports hopelessness and Reports mood swings Mental Status Exam Mental Status Exam Narrative: Appearance: MO male, casually groomed, in NAD Behavior: calm, cooperative. Psychomotor: no agitation or retardation noted Speech: clear, normal rate/rhythmt, spontaneous TP: linear TC: no signs of psychosis, feeling depressed, not suicidal VH/AH: none Insight/judgment: fair x 2. Memory/cog: alert, oriented x 3. grossly intact to conversational testing. Patient Orientation: Person, Place, Time and Situation Level of Consciousness: Awake and Alert Patient Behavior: Appropriate and Talkative Mood Description: Calm Affect Description: Flat Patient Cognition Impaired: No Ability to Follow Directions: Good Speech Pattern: Spontaneous Speech Memory Description: Intact Diagnostics Vital Signs (24Hr): Body Mass Index 45.0 Assessment & Plan Assessment & Plan (1) MDD (major depressive disorder), recurrent episode, moderate: Status: Acute Code(s): F33.1 - Major depressive disorder, recurrent, moderate Assessment and Plan: -Continue Cymbalta 60 mg daily -Pt will not trial [place] as sx have resolved. -Discussed labs with pt-as he has had them with [facility] recently, will not re- order unless he requests. He does not feel it is needed at this time. Certification I certify that partial hospital treatment is medically necessary due to the symptoms and problems resulting from the patient's mental illness and the failure to treat the patient at the partial hospital level of care would likely result in the patient requiring inpatient psychiatric care which could not be prevented at a less intensive level of care. Greater than 50% of the session was spent on counseling and/or coordination of care Discharge Plan Discharge Attending provider: Senthil Ang Medications: Discontinued bupropion HCl 75 mg Tablet 75 mg PO DAILY RF: 0 duloxetine 30 mg capsule,delayed release(DR/EC) 30 mg PO DAILY RF: 0 No Action (JILLIAN) you [place] See Rx Instructions .ROUTE .MEDSUPPLY Qty: 1 RF: 0 testosterone 1.62 % (20.25 mg/1.25 gram) Gel In Packet 1 packet TRANSDERMAL DAILY RF: 0 lisinopril 20 mg tablet 20 mg PO DAILY RF: 0 methocarbamol 750 mg tablet 750 mg PO TID RF: 0 duloxetine 60 mg capsule,delayed release(DR/EC) 60 mg PO DAILY RF: 0 levothyroxine 88 mcg tablet See Rx Instructions .ROUTE .COMPLEX RF: 0 Telehealth Telehealth Location of provider rendering services: practice address Location of patient: address on file Patient Identification confirmed using: Name, : Yes Telehealth method: voice only Patient verbally consented to treatment: Yes Patient verbally consented to billing insurance company: Yes Patient informed of any privacy concerns related to visit: Yes Time spent with patient (mins): 20
== END 2020-06-27 23:55 | disposition home or self-care (01) ==
LOC: HO.PHPA 08:30
PROVIDERS: Visit Provider Psychiatry & Neurology Psychiatry
DX: F33.1 Major depressive disorder, recurrent, moderate (principal); Z79.899 Other long term (current) drug therapy
CPT/HCPCS: 90791; 90853

== ENCOUNTER 2021-01-02 23:32 | Emergency (ER) | payer OTHER, SELFPAY ==
--- NOTE | ~2021-01-02 | CT_ITS ---
EXAMINATION: CT CHEST WITHOUT CONTRAST CLINICAL INFORMATION: Fall with left-sided chest wall pain, question rib fracture COMPARISON: Chest x-ray 05/04/2020 TECHNIQUE: Multidetector volumetric CT imaging of the chest was done. Axial MIP volume rendering provided. Sagittal and coronal reformatted images were obtained. This CT examination was performed using dose optimization techniques as appropriate, variously including the following: *Automated exposure control *Adjustment of mA and/or kV according to patient size (this includes techniques or standardized protocols for targeted exams where dose is matched to indication/reason for exam; i.e. extremities or head) *Use of iterative reconstruction technique DLP: 710 mGy-cm FINDINGS: LUNGS: The lungs are clear with no evidence of inflammation or nodules. MEDIASTINUM: The visualized thyroid gland is unremarkable. There are subcentimeter mediastinal lymph nodes within the range of normal variation. Cardiac size is within normal limits; no pericardial effusion. Mitral annular calcification is present. Mild coronary artery calcification is noted. PLEURA: There is no pleural effusion. No pleural mass or thickening. AXILLA: No lymphadenopathy. Bilateral gynecomastia noted. UPPER ABDOMEN: Cholelithiasis is noted. OSSEOUS STRUCTURES: There is a healing fracture of the lateral left fourth rib. Collapsed appearance of the T11 vertebral body has significantly worsened from 05/04/2020, with multiple foci of gas present. There is some retropulsion which narrows the central canal to approximately [address]/CT chest wo con IMPRESSION: 1. Healing fracture of the lateral left fourth rib. No additional acute rib fracture identified. 2. Collapsed T11 vertebral body, significantly worsened from 05/04/2020. Retropulsion which narrows the central canal to approximately 8 mm. 3. Mild coronary artery calcifications. Correlation with cardiac risk factors is recommended.
[2021-01-02 23:36] VITALS: BP 137/93; PULSE 116; RESP 20; TEMP 36.7; O2SAT 97; BMI 40.5
[2021-01-03] VITALS: BP 132/90; PULSE 98; RESP 20
[2021-01-03 02:00] VITALS: BP 130/78; PULSE 88; RESP 15; O2SAT 98
--- NOTE | 2021-01-03 02:09 | ED_ITS ---
HPI - Fall General Chief Complaint: Fall Stated Complaint: SoB Rib Pain Time Seen by Provider: 01/03/21 02:09 Source: patient Mode of arrival: ambulatory History of Present Illness HPI Narrative: 55-year-old male presents with left-sided chest wall pain and states that on Thursday evening he was drinking alcohol tripped and fell against the edge of a chair without loss of consciousness. Patient reports that he is having some discomfort that has continued. Related Data Home Medications Medication Instructions Recorded Confirmed duloxetine 60 mg capsule,delayed 60 mg PO DAILY 02/20/20 06/04/20 release levothyroxine 88 mcg tablet See Rx Instructions .ROUTE .COMPLEX 02/20/20 06/04/20 lisinopril 20 mg tablet 20 mg PO DAILY 02/20/20 06/04/20 methocarbamol 750 mg tablet 750 mg PO TID 02/20/20 06/19/20 testosterone 1.62 % (20.25 mg/1.25 1 packet TRANSDERMAL DAILY 06/04/20 06/04/20 gram) transdermal gel packet Previous Rx's Medication Instructions Recorded walker #1 ea 05/08/20 Allergies Allergy/AdvReac Type Severity Reaction Status Date / Time allopurinol [ALLOPURINOL] Allergy Unknown RASH Verified 05/08/20 16:27 blueberry [BLUEBERRY] Allergy Unknown UNKNOWN Verified 05/08/20 16:27 latex [LATEX] Allergy Unknown RASH Verified 05/08/20 16:27 DRAGON FRUIT Allergy Unknown HIVES Uncoded 02/20/20 14:29 dragon fruit Allergy Unknown unknown Uncoded 02/20/20 14:29 sports tape Allergy Unknown unknown Uncoded 02/20/20 14:29 Review of Systems Review of Systems: Pertinent positives and negatives as stated in HPI 10 point review systems is otherwise negative. [facility] Past Medical History Source: nursing notes reviewed Medical History Anemia Asthma Borderline diabetes Depression GERD (gastroesophageal reflux disease) Gout HTN (hypertension) Hypothyroidism Obesity Osteoarthritis PTSD (post-traumatic stress disorder) Recurrent major depression Sleep apnea Surgical History H/O adenoidectomy History of appendectomy History of tonsillectomy Social History Social History Household Members: None Alcohol intake: never Patient Tobacco Use Status: Never used Tobacco Use of substances other than those prescribed or required for medical reasons: No Advance Directives: Yes Physical Exam Vital Signs: Vital Signs: Last Vital Signs Temp 98.0 F 01/02/21 23:36 Pulse 88 01/03/21 02:00 Resp 15 01/03/21 02:00 BP 130/78 01/03/21 02:00 Pulse Ox 98 01/03/21 02:00 Body Mass Index 40.5 VITAL SIGNS: Reviewed. GENERAL: Well developed, well nourished, in no acute distress. HEAD: Normocephalic/atraumatic EYES: PERRLA, EOMI OROPHARYNX: no oral lesions noted, posterior pharynx clear LUNGS: Normal breath sounds. No adventitious sounds or accessory muscle use. SpO2<98>, chest wall tenderness noted on palpation over anterolateral rib area CARDIOVASCULAR: Regular rate and rhythm without noted murmurs, no JVD or lower extremity edema. ABDOMEN: Soft, non-tender, non-distended with bowel sounds. EXTREMITIES: No cyanosis, clubbing or chronic venous stasis changes with bronzing, shininess, skin thickening SKIN: Inspection of the skin reveals no rashes NEUROLOGIC: Alert and oriented x 4. Strength and sensation to light touch were grossly intact x 4. Course Course Course Narrative: 55-year-old male with history and clinical presentation consistent with likely rib fracture and pain secondary to this. Review of all investigations demonstrates a healing rib fracture at the lateral left 4th rib. Although there is noted retropulsion at the T11 vertebral body patient otherwise asymptomatic without evidence of bowel or bladder dysfunction or motor/sensation deficits in bilateral lower extremities. MDM - Fall Lab Data Result diagrams: 01/03/21 03:02 01/03/21 03:02 Labs: Lab Results 01/03/21 01/03/21 01/03/21 Range/Units 03:02 03:02 03:02 WBC 10.6 (4.8-10.8) X10*3/uL RBC 4.40 L (4.60-5.80) X10*6/uL Hgb 13.2 L (14.0-18.0) g/dl Hct 39.1 L (42-52) % MCV 88.9 (80-98) fL MCH 30.0 (27.0-33.0) pg MCHC 33.8 (31.0-36.0) g/dl RDW 13.1 (11.0-16.0) % Plt Count 256 (160-400) X10*3/uL MPV 11.0 (9.4-12.4) fL Immature Gran % (Auto) 0.3 (0.0-0.4) % Neut % (Auto) 55.5 (45-73) % Lymph % (Auto) 32.7 (20-40) % [place] % (Auto) 6.3 (2-11) % Eos % (Auto) 4.3 H (0-4) % Baso % (Auto) 0.9 (0-2) % Lymph # (Auto) 3.5 (1.2-4.9) X10*3/uL [place] # (Auto) 0.7 (0.1-1.2) X10*3/uL Eos # (Auto) 0.5 H (0.0-0.4) X10*3/uL Baso # (Auto) 0.1 (0.0-0.2) X10*3/uL Abs Immat Gran (auto) 0.03 (0.00-0.03) X10*3/uL Absolute Neuts (auto) 5.9 (2.0-8.3) X10*3/uL Absolute Nucleated RBC 0.000 (0.0-0.012) X10*3/uL Nucleated RBC % (auto) 0.0 (0.0-0.2) /100WBC Sodium 139 (135-145) mmol/L Potassium 4.0 (3.3-5.1) mmol/L Chloride 106 (96-108) mmol/L Carbon Dioxide 26 (22-29) mmol/L Anion Gap 11 L (12-20) BUN 20 H D (9-16) mg/dL Creatinine 1.01 (0.5-1.4) mg/dL Estim Creat Clear Calc 126.4 Estimated GFR > 60 Random Glucose 115 (60-115) mg/dL Calcium 9.1 (8.4-10.2) mg/dL Total Bilirubin 0.3 (0.0-1.0) mg/dL AST 14 (5-37) U/L ALT 14 (0-40) U/L Alkaline Phosphatase 89 D (39-117) U/L B-Natriuretic Peptide 36 (<100) pg/mL Total Protein 6.4 L (6.5-8.0) g/dL Albumin 3.6 (3.5-5.0) g/dL Discharge Plan Discharge Clinical Impression: Left rib fracture Patient Disposition: Home, Self-Care Instructions: Rib Fracture (ED), How to Use an Incentive Spirometer (ED) Additional Instructions: 1. Resume all home medications as prescribed. 2. Tylenol 1000 mg, orally, every 6 hours as needed for pain control. 3. Lidocaine patch, these are available [id number] at every [facility], apply to area of maximal tenderness as directed on the outside packaging. 4. Please follow-up with your primary care provider in the next 2-3 days for re- evaluation. Return to the ER for acute worsening of symptoms. Prescriptions: No Action (DME) walker [facility] See Rx Instructions .ROUTE .MEDSUPPLY Qty: 1 RF: 0 testosterone 1.62 % (20.25 mg/1.25 gram) Gel In Packet 1 packet TRANSDERMAL DAILY RF: 0 lisinopril 20 mg tablet 20 mg PO DAILY RF: 0 methocarbamol 750 mg tablet 750 mg PO TID RF: 0 duloxetine 60 mg capsule,delayed release(DR/EC) 60 mg PO DAILY RF: 0 levothyroxine 88 mcg tablet See Rx Instructions .ROUTE .COMPLEX RF: 0 Referrals: Erik Jovel MD [Primary Care Provider] - 2 days
[2021-01-03 03:07] LABS: MANUAL DIFF FLAG NO
[2021-01-03 03:09] LABS: Basophils Absolute Auto 0.1 X10*3/uL (0.0-0.2); Basophils Percent Auto 0.9 % (0-2); Eosinophils Absolute Auto 0.5 X10*3/uL (0.0-0.4); Eosinophils Percent Auto 4.3 % (0-4); Hematocrit 39.1 % (42-52); Hemoglobin 13.2 g/dl (14.0-18.0); Imm Gran Abs Auto 0.03 X10*3/uL (0.00-0.03); Imm Gran Pct Auto 0.3 % (0.0-0.4); Lymphocytes Absolute Auto 3.5 X10*3/uL (1.2-4.9); Lymphocytes Percent Auto 32.7 % (20-40); Mean Corpuscular HGB Conc 33.8 g/dl (31.0-36.0); Mean Corpuscular Volume 88.9 fL (80-98); Monocytes Absolute Auto 0.7 X10*3/uL (0.1-1.2); Monocytes Percent Auto 6.3 % (2-11); Neutrophils Absolute Auto 5.9 X10*3/uL (2.0-8.3); Neutrophils Percent Auto 55.5 % (45-73); Platelet Count 256 X10*3/uL (160-400); Red Cell Distribution Width 13.1 % (11.0-16.0); White Blood Count 10.6 X10*3/uL (4.8-10.8)
[2021-01-03] MEDS: Acetaminophen 325 MG TABLET 975 MG PO (03:12)
[2021-01-03] MEDS: Lidocaine 4 % Patch ADH..PATCH 1 PATCH TRANSDERMA (03:13)
[2021-01-03 03:33] LABS: Alanine Aminotransferase 14 U/L (0-40); Albumin Level 3.6 g/dL (3.5-5.0); Alkaline Phosphatase 89 U/L (39-117); Anion Gap 11 (12-20); Aspartate Amino Transferase 14 U/L (5-37); Bilirubin Total 0.3 mg/dL (0.0-1.0); Blood Urea Nitrogen 20 mg/dL (9-16); Calcium 9.1 mg/dL (8.4-10.2); Carbon Dioxide 26 mmol/L (22-29); Chloride 106 mmol/L (96-108); Creatinine Clr Calc Pharmacy 126.4; Estimated Glomerular Filt Rate > 60; Glucose Random 115 mg/dL (60-115); Sodium 139 mmol/L (135-145); Total Protein 6.4 g/dL (6.5-8.0)
[2021-01-03 03:35] LABS: B Type Natriuretic Peptide 36 pg/mL (<100)
== END 2021-01-03 04:42 | disposition home or self-care (01) ==
PROVIDERS: Emergency Provider Student in an Organized Health Care Education/Training Program; PCP Internal Medicine
DX: S22.32XA Fracture of one rib, left side, initial encounter for closed fracture (principal); W01.190A Fall on same level from slipping, tripping and stumbling with subsequent striking against furniture, initial encounter; I10 Essential (primary) hypertension; Y93.89 Activity, other specified; Y92.9 Unspecified place or not applicable; Y99.9 Unspecified external cause status
CPT/HCPCS: 36415; 71250; 80053; 83880; 85025; 99284; 99285

== ENCOUNTER 2021-09-26 00:37 | Emergency (ER) | payer OTHER, SELFPAY ==
--- NOTE | ~2021-09-26 | XR_ITS ---
EXAMINATION: XR CHEST CLINICAL INFORMATION: Pain COMPARISON: 05/04/2020 TECHNIQUE: Frontal view of the chest was obtained. FINDINGS: The lungs are well expanded. There is no focal consolidation, edema, or effusion. No pneumothorax. The cardiomediastinal silhouette is within normal limits. No acute osseous abnormality. XR/XR chest 1V IMPRESSION: No acute pulmonary finding.
--- NOTE | ~2021-09-26 | CT_ITS ---
EXAMINATION: CT CHEST WITHOUT CONTRAST CLINICAL INFORMATION: Right chest wall pain. Rule out rib fracture. COMPARISON: Radiographs from earlier today. CT 01/03/2021. TECHNIQUE: Multidetector volumetric CT imaging of the chest was done. Axial MIP volume rendering provided. Sagittal and coronal reformatted images were obtained. This CT examination was performed using dose optimization techniques as appropriate, variously including the following: *Automated exposure control *Adjustment of mA and/or kV according to patient size (this includes techniques or standardized protocols for targeted exams where dose is matched to indication/reason for exam; i.e. extremities or head) *Use of iterative reconstruction technique DLP: 601 mGy-cm FINDINGS: BIT WELDER: Unremarkable. LUNGS: The lungs are clear with no evidence of inflammation or nodules. The central airways are patent. MEDIASTINUM: Normal heart size. No pericardial effusion. No mediastinal lymphadenopathy. PLEURA: There is no pleural effusion. No pleural mass or thickening. No pneumothorax. AXILLA: No lymphadenopathy. UPPER ABDOMEN: Small stones in the gallbladder lumen. No inflammatory changes. OSSEOUS STRUCTURES: Chronic compression deformity of the T11 vertebral body. Increased osseous bridging anteriorly at this abnormality. Similar retropulsion of the posterior superior endplate. There is a sternal body fracture which is subacute and healing. This is new from 01/03/2021. Callus formation present. There is a nondisplaced posterior right eighth rib fracture. This appears acute. Progressive healing of a left lateral fifth rib fracture with increased callus formation. CT/CT chest wo con IMPRESSION: 1. Acute nondisplaced posterior right eighth rib fracture. 2. Additional progressive healing of subacute/chronic fractures. 3. Clear lungs. Fleischner guidelines were followed.
[2021-09-26 00:47] VITALS: PULSE 95; RESP 20; TEMP 36; O2SAT 96; BMI 41.8
[2021-09-26 02:10] LABS: MANUAL DIFF FLAG NO
[2021-09-26 02:12] LABS: Basophils Absolute Auto 0.1 X10*3/uL (0.0-0.2); Basophils Percent Auto 1.2 % (0-2); Eosinophils Absolute Auto 0.5 X10*3/uL (0.0-0.4); Eosinophils Percent Auto 4.2 % (0-4); Hematocrit 44.1 % (42.0-52.0); Hemoglobin 14.8 g/dl (14.0-18.0); Imm Gran Abs Auto 0.02 X10*3/uL (0.00-0.03); Imm Gran Pct Auto 0.2 % (0.0-0.4); Lymphocytes Absolute Auto 2.7 X10*3/uL (1.2-4.9); Mean Corpuscular HGB Conc 33.6 g/dl (31.0-36.0); Mean Corpuscular Hemoglobin 30.1 pg (27.0-33.0); Mean Corpuscular Volume 89.6 fL (80.0-98.0); Mean Platelet Volume 10.7 fL (9.4-12.4); Monocytes Absolute Auto 0.8 X10*3/uL (0.1-1.2); Monocytes Percent Auto 7.5 % (2-11); Neutrophils Absolute Auto 6.8 x10*3/uL (2.0-8.3); Neutrophils Percent Auto 61.9 % (45-73); Platelet Count 259 X10*3/uL (160-400); Red Blood Count 4.92 X10*6/uL (4.60-5.80); Red Cell Distribution Width 13.2 % (11.0-16.0); White Blood Count 10.9 X10*3/uL (4.8-10.8)
[2021-09-26 02:13] LABS: Appearance Urine CLEAR; Color Urine YELLOW; Glucose Urine UA NEG (NEG); Leukocyte Esterase Urine NEG (NEG); Nitrite Urine NEG (NEG); Urine Blood NEG (NEG); Urine Ketones NEG (NEG); Urine Protein NEG (NEG-TRACE)
[2021-09-26 02:32] LABS: COVID-19 Test Negative (Negative); IDNOW Serial# 08D9AD1C; Influenza A Negative (Negative); Influenza B2 Negative (Negative)
[2021-09-26 02:37] LABS: Alanine Aminotransferase 19 U/L (0-40); Alkaline Phosphatase 97 U/L (39-117); Anion Gap 14 (12-20); Aspartate Amino Transferase 21 U/L (5-37); Bilirubin Total 0.4 mg/dL (0.0-1.0); Blood Urea Nitrogen 16 mg/dL (9-16); Calcium 9.5 mg/dL (8.4-10.2); Carbon Dioxide 25 mmol/L (22-29); Chloride 103 mmol/L (96-108); Creatinine Clr Calc Pharmacy 121.2; Estimated Glomerular Filt Rate > 60; Glucose Random 116 mg/dL (60-115); Lipase 21 U/L (8-78); Potassium 4.3 mmol/L (3.3-5.1); Sodium 138 mmol/L (135-145); Total Protein 7.3 g/dL (6.5-8.0)
--- NOTE | 2021-09-26 03:51 | ED.GENADULT ---
HPI - General Adult General Chief complaint: General Medical Stated complaint: Flank pain/SOB Time Seen by Provider: 09/26/21 03:50 Source: patient Mode of arrival: ambulatory Limitations: no limitations History of Present Illness HPI narrative: 56-year-old male came in for evaluation of right side chest wall pain for the last month. Patient just came from floor the has been coughing for the past month, started to have right-sided chest pain that worsening with movement or taking a deep breath or touching the side of the pain. Patient decline shortness of breath or mid chest pain or radiation of the pain. Patient had a history of rib fracture in the past. Related Data Home Medications Medication Instructions Recorded Confirmed duloxetine 60 mg capsule,delayed 60 mg PO DAILY 02/20/20 06/04/20 release levothyroxine 88 mcg tablet See Rx Instructions .ROUTE .COMPLEX 02/20/20 06/04/20 lisinopril 20 mg tablet 20 mg PO DAILY 02/20/20 06/04/20 methocarbamol 750 mg tablet 750 mg PO TID 02/20/20 06/19/20 testosterone 1.62 % (20.25 mg/1.25 1 packet TRANSDERMAL DAILY 06/04/20 06/04/20 gram) transdermal gel packet Previous Rx's Medication Instructions Recorded walker #1 ea 05/08/20 Allergies Allergy/AdvReac Type Severity Reaction Status Date / Time allopurinol [ALLOPURINOL] Allergy Unknown RASH Verified 09/26/21 00:51 blueberry [BLUEBERRY] Allergy Unknown UNKNOWN Verified 09/26/21 00:51 latex [LATEX] Allergy Unknown RASH Verified 09/26/21 00:51 DRAGON FRUIT Allergy Unknown HIVES Uncoded 09/26/21 00:51 dragon fruit Allergy Unknown unknown Uncoded 09/26/21 00:51 sports tape Allergy Unknown unknown Uncoded 09/26/21 00:51 Review of Systems Review of Systems: All other systems are reviewed and are negative Constitutional: Reports as per HPI and Reports no additional constitutional complaints Eyes: Reports as per HPI and Reports no additional eye complaints Reports system reviewed and no additional complaints, except as documented Cardiovascular: Reports as per HPI and Reports no additional cardiovascular complaints Respiratory: Reports as per HPI and Reports no additional respiratory complaints Gastrointestinal: Reports as per HPI and Reports no additional gastrointestinal complaints Genitourinary: Reports no additional female genitourinary complaints Musculoskeletal: Reports no additional musculoskeletal complaints Skin/Breast: Reports system reviewed and no additional complaints, except as docu Psychiatric: Reports no additional psychiatric complaints Endocrine: Reports no additional endocrine complaints Hematologic/Lymphatic: Reports no additional hematologic/lymphatic complaints Allergic/Immunologic: Reports no additional allergic/immunologic complaints Reports system reviewed and no additional complaints, except as documented and Reports Abnormal speech present [facility] Past Medical History Medical History Anemia Asthma Borderline diabetes Depression GERD (gastroesophageal reflux disease) Gout HTN (hypertension) Hypothyroidism Obesity Osteoarthritis PTSD (post-traumatic stress disorder) Recurrent major depression Sleep apnea Surgical History H/O adenoidectomy History of appendectomy History of tonsillectomy Social History Social History Household Members: None Alcohol intake: never Patient Tobacco Use Status: Never used Tobacco Advance Directives: No Physical Exam ED Vital Signs: Vital Signs - 24 hr 09/26/21 00:47 09/26/21 03:59 Temperature 96.8 F 98.1 F Pulse Rate 95 71 Respiratory Rate 20 14 Blood Pressure 137/88 Pulse Oximetry 96 98 BMI result Body Mass Index 41.8 Vital signs have been reviewed as appeared to be correct. Blood pressure normal. Heart rate normal. Respiration rate normal. Temperature normal. Oxygen saturation normal. Appearance: Alert. Oriented X3. No acute distress. Head: Normal external exam. Normocephalic. Atraumatic. No Bates signs noted. No raccoon eyes noted Eyes: PERRLA. EOMI. Conjunctiva and sclera normal. Eyelids normal. ENT: TM's Normal. Pharynx normal. Uvula midline. Moist mucous membranes. No trismus noted. No drooling noted. No muffled voice noted. Neck: Normal inspection. Neck supple. FROM. No adenopathy. Thyroid Normal. No meningeal signs. No neck mass noted. CVS: Normal heart rate and rhythm. Heart sound normal. No murmurs noted. Pulses normal throughout. Respiratory: No respiratory distress. Painless inspiration. Breath sounds normal. No wheezes/rales/rhonchi noted. Chest tenderness over mid axillary line around the 10th rib on the right side, no ecchymosis. No accessory muscle usage noted or decreased air movement noted. Abdomen: Soft and nontender. Bowel sounds normal in all 4 quadrants. No distention noted. No organomegaly noted. No visible injury noted. Back: No CVA tenderness. Full range of motion noted. Skin: Skin warm and dry. Normal skin color. Normal skin turgor. No rashes/lesions/lacerations noted. Extremities: No lower extremity edema. Extremities exhibit normal range of motion. Extremities nontender. Neuro: Oriented X 3. Cranial nerve exam: II-XII are grossly intact No motor deficit. No sensory deficit. Reflexes normal. Course Course Course Narrative: Assessment and plan. 56-year-old male came in with right-sided chest wall pain, patient had cough and sneezing last month, and today patient was turning to get into the car felt a pop and then started to have sharp right-sided chest pain more with movement and taking a deep breath. Chest x-ray did not show fracture on the CT there is a right 8th rib fracture which appear acute. Otherwise there is no lung injury or intra-abdominal injury on the CT. Patient will be provided incentive spirometry and instructed to use Tylenol/ibuprofen if needed. Medical Decision Making Lab Data Lab results reviewed: Yes I reviewed the patient's lab results. Result diagrams: 09/26/21 02:05 09/26/21 02:05 Labs: Lab Results 09/26/21 09/26/21 09/26/21 Range/Units 02:05 02:05 02:05 WBC 10.9 H (4.8-10.8) X10*3/uL RBC 4.92 (4.60-5.80) X10*6/uL Hgb 14.8 (14.0-18.0) g/dl Hct 44.1 (42.0-52.0) % MCV 89.6 (80.0-98.0) fL MCH 30.1 (27.0-33.0) pg MCHC 33.6 (31.0-36.0) g/dl RDW 13.2 (11.0-16.0) % Plt Count 259 (160-400) X10*3/uL MPV 10.7 (9.4-12.4) fL Immature Gran % (Auto) 0.2 (0.0-0.4) % Neut % (Auto) 61.9 (45-73) % Lymph % (Auto) 25.0 (20-40) % [place] % (Auto) 7.5 (2-11) % Eos % (Auto) 4.2 H (0-4) % Baso % (Auto) 1.2 (0-2) % Lymph # (Auto) 2.7 (1.2-4.9) X10*3/uL [place] # (Auto) 0.8 (0.1-1.2) X10*3/uL Eos # (Auto) 0.5 H (0.0-0.4) X10*3/uL Baso # (Auto) 0.1 (0.0-0.2) X10*3/uL Abs Immat Gran (auto) 0.02 (0.00-0.03) X10*3/uL Absolute Neuts (auto) 6.8 (2.0-8.3) x10*3/uL Absolute Nucleated RBC 0.000 (0.0-0.012) X10*3/uL Nucleated RBC % (auto) 0.0 (0.0-0.2) /100WBC Sodium 138 (135-145) mmol/L Potassium 4.3 (3.3-5.1) mmol/L Chloride 103 (96-108) mmol/L Carbon Dioxide 25 (22-29) mmol/L Anion Gap 14 (12-20) BUN 16 (9-16) mg/dL Creatinine 1.06 (0.5-1.4) mg/dL Estim Creat Clear Calc 121.2 Estimated GFR > 60 Random Glucose 116 H (60-115) mg/dL Calcium 9.5 (8.4-10.2) mg/dL Total Bilirubin 0.4 (0.0-1.0) mg/dL AST 21 D (5-37) U/L ALT 19 (0-40) U/L Alkaline Phosphatase 97 (39-117) U/L Total Protein 7.3 (6.5-8.0) g/dL Albumin 4.0 (3.5-5.0) g/dL Lipase 21 (8-78) U/L Urine Color Urine Appearance Urine pH (5.0-8.0) Ur Specific [place] (1.005-1.025) Urine Protein (NEG-TRACE) MG/DL Urine Glucose (UA) (NEG) MG/DL Urine Ketones (NEG) MG/DL Urine Blood (NEG) Urine Nitrite (NEG) Ur Leukocyte Esterase (NEG) COVID-19 (ARI) (Negative) COVID-19 Clin Com Influenza Type A (KANA) Negative (Negative) Influenza Type B (KANA) Negative (Negative) Influenza A & B Note See Note 09/26/21 09/26/21 Range/Units 02:05 02:05 WBC (4.8-10.8) X10*3/uL RBC (4.60-5.80) X10*6/uL Hgb (14.0-18.0) g/dl Hct (42.0-52.0) % MCV (80.0-98.0) fL MCH (27.0-33.0) pg MCHC (31.0-36.0) g/dl RDW (11.0-16.0) % Plt Count (160-400) X10*3/uL MPV (9.4-12.4) fL Immature Gran % (Auto) (0.0-0.4) % Neut % (Auto) (45-73) % Lymph % (Auto) (20-40) % [place] % (Auto) (2-11) % Eos % (Auto) (0-4) % Baso % (Auto) (0-2) % Lymph # (Auto) (1.2-4.9) X10*3/uL [place] # (Auto) (0.1-1.2) X10*3/uL Eos # (Auto) (0.0-0.4) X10*3/uL Baso # (Auto) (0.0-0.2) X10*3/uL Abs Immat Gran (auto) (0.00-0.03) X10*3/uL Absolute Neuts (auto) (2.0-8.3) x10*3/uL Absolute Nucleated RBC (0.0-0.012) X10*3/uL Nucleated RBC % (auto) (0.0-0.2) /100WBC Sodium (135-145) mmol/L Potassium (3.3-5.1) mmol/L Chloride (96-108) mmol/L Carbon Dioxide (22-29) mmol/L Anion Gap (12-20) BUN (9-16) mg/dL Creatinine (0.5-1.4) mg/dL Estim Creat Clear Calc Estimated GFR Random Glucose (60-115) mg/dL Calcium (8.4-10.2) mg/dL Total Bilirubin (0.0-1.0) mg/dL AST (5-37) U/L ALT (0-40) U/L Alkaline Phosphatase (39-117) U/L Total Protein (6.5-8.0) g/dL Albumin (3.5-5.0) g/dL Lipase (8-78) U/L Urine Color YELLOW Urine Appearance CLEAR Urine pH 6.0 (5.0-8.0) Ur Specific [place] 1.020 (1.005-1.025) Urine Protein NEG (NEG-TRACE) MG/DL Urine Glucose (UA) NEG (NEG) MG/DL Urine Ketones NEG (NEG) MG/DL Urine Blood NEG (NEG) Urine Nitrite NEG (NEG) Ur Leukocyte Esterase NEG (NEG) COVID-19 (ARI) Negative (Negative) COVID-19 Clin Com See Note Influenza Type A (KANA) (Negative) Influenza Type B (KANA) (Negative) Influenza A & B Note Imaging Data Chest x-ray: Attestation: I personally reviewed and interpreted this imaging study as follows: Radiologist's impression: No acute pulmonary finding. Chest CT: Attestation: I personally reviewed and interpreted this imaging study as follows: Radiologist's impression: 1. Acute nondisplaced posterior right eighth rib fracture. 2. Additional progressive healing of subacute/chronic fractures. 3. Clear lungs.? ? Discharge Plan Discharge Clinical Impression: Chest wall pain, Right rib fracture Patient Disposition: Home, Self-Care Instructions: Rib Fracture (ED) Additional Instructions: Take Tylenol/ibuprofen if needed for pain. Prescriptions: No Action (DME) walker Misc See Rx Instructions .ROUTE .MEDSUPPLY Qty: 1 0RF Rx Instructions: As directed testosterone 1.62 % (20.25 mg/1.25 gram) Gel In Packet 1 packet TRANSDERMAL DAILY 0RF lisinopril 20 mg tablet 20 mg PO DAILY 0RF methocarbamol 750 mg tablet 750 mg PO TID 0RF duloxetine 60 mg capsule,delayed release(DR/EC) 60 mg PO DAILY 0RF levothyroxine 88 mcg tablet See Rx Instructions .ROUTE .COMPLEX 0RF Rx Instructions: Take 1 tab 6 days a week. On Saturdays take 2 tabs. Referrals: Erik Jovel III, MD [Primary Care Provider] -
[2021-09-26 03:59] VITALS: BP 137/88; PULSE 71; RESP 14; TEMP 36.7; O2SAT 98
[2021-09-26] MEDS: oxyCODONE HCl Immed Release 5 MG TABLET PO (04:11)
== END 2021-09-26 07:43 | disposition home or self-care (01) ==
PROVIDERS: Emergency Provider Emergency Medicine; PCP Internal Medicine
DX: S22.41XA Multiple fractures of ribs, right side, initial encounter for closed fracture (principal); R07.89 Other chest pain; R06.02 Shortness of breath; M54.6 Pain in thoracic spine; X58.XXXA Exposure to other specified factors, initial encounter; Y93.9 Activity, unspecified; Y92.9 Unspecified place or not applicable; Y99.9 Unspecified external cause status; Z20.822 Contact with and (suspected) exposure to COVID-19; Z79.899 Other long term (current) drug therapy
CPT/HCPCS: 36415; 71045; 71250; 80053; 81003; 83690; 85025; 87502; 87635; 99283; 99284

== ENCOUNTER 2024-01-26 21:43 | Emergency (ER) | payer OTHER, SELFPAY ==
--- NOTE | 2024-01-26 | ECG_ITS ---
Test Reason : DIZZINESS Blood Pressure : / mmHG Vent. Rate : 065 BPM Atrial Rate : 065 BPM P-R Int : 148 ms QRS Dur : 078 ms QT Int : 390 ms P-R-T Axes : 027 008 055 degrees QTc Int : 405 ms Normal sinus rhythm Normal ECG When compared with ECG of 08-JAN-2019 16:43, Aberrant conduction is no longer Present QT has shortened Referred By: Generic ED Physician Electronically Signed By:RADHA QUINTERO
--- NOTE | ~2024-01-26 | XR_ITS ---
EXAMINATION: XR CHEST CLINICAL INFORMATION: Shortness of breath. COMPARISON: September 26, 2021 TECHNIQUE: 2 views of the chest were obtained. FINDINGS: The cardiomediastinal silhouette is stable. There is no focal lung consolidation or pleural effusions. There is a lower thoracic compression fracture which was seen on prior CT performed on September 26, 2021. XR/XR chest 2V IMPRESSION: No acute cardiopulmonary process. Electronically signed by: Ascencion Gama MD 01/27/2024 12:49 AM EDT
[2024-01-26 22:10] VITALS: BP 139/88; PULSE 67; RESP 18; TEMP 36.8; O2SAT 97; BMI 44.7
--- OUTSIDE RECORDS SUMMARY | 2024-01-26 22:36 | XMS_ITS | Continuity of Care Document ---
Author Organization [facility] Address [address] [place] [id number]- Care Team Providers Care Bead Forming Machine Operator Name Role Phone Med CARSON MD, Erik Bauer Primary Care Physician [place]counter [facility] [place](s[place] 06/25/20 - 07/25/[address] [address] Attending Physician: Renetta Frye Admitting Physician: AdmRenetta mota Referring Physician: AdmtrRenetta Allergies, Adverse Reactions, Alerts Substance Reaction Severity Status allopurinol Active Adhesive Bandage Active Other Food Allergy blueberries and dragon fruit Active Medications Cymbalta 60 mg oral enteric coated capsule 1 capsule = 60 mg, By Mouth, Daily, # 30 capsule, 0 Refills, Maintenance, 09/30/16 9:14:54, EC Capsule Start Date: 09/30/16 Status: Ordered Percocet-5/325 325 mg-5 mg oral tablet 1 tablet, By Mouth, Every 4 hours, PRN Pain, # 25 tablet, 0 Refills Start Date: 09/29/08 Stop Date: 10/06/08 Status: Ordered Problem List Condition Effective Dates Status Health Status Inform ant Anxiety(Confirmed) Active Depression(Confirmed) Active Alcohol abuse, in remission(Confirmed) Active Uncomplicated opioid abuse(Confirmed) Active
--- OUTSIDE RECORDS SUMMARY | 2024-01-26 22:36 | XMS_ITS | Continuity of Care Document ---
Author Organization [facility] Address [address] [place] [id number]- Care Team Providers Care Glass Installer Technician Name Role Phone Med CARSON MD, Erik Bauer Primary Care Physician [phone] [id number] Date(s): 06/21/20 - 07/25/[address] [address]- Attending Physician: Erik Jovel III, MD Admitting Physician: Erik Jovel III, MD Referring Physician: Erik Jovel III, MD Allergies, Adverse Reactions, Alerts Substance Reaction Severity [...]
--- OUTSIDE RECORDS SUMMARY | 2024-01-26 22:36 | XMS_ITS | Continuity of Care Document ---
Author Organization [facility] ter Address [address] [place] [id number]- Care Team Providers Care Leasing Assistant Name Role Phone Med CARSON MD, Erik Bauer Primary Care Physician [phone] En[place] [facility] [place] [facility] [place](s): 04/28/22 - 04/28/[address] [address]- Discharge Disposition: A-D/C Home Attending Physician: Ruy FRY, Ale Diaz Admitting Physician: Ale Redmond MD Referring Physician: Not on Staff, Referring MD Allergies, Adverse Reactions, Alerts Substance Reaction [...] Date: 10/06/08 Status: Ordered Problem List Condition Confirmation Course Effective Dates Status H ealth Status Informant Anxiety Confirmed Active Depression Confirmed Active Alcohol abuse, in remission Confirmed Active Uncomplicated opioid abuse Confirmed Active Severe obesity Confirmed Active Results Radiology Reports * Exam Date Time Procedure Performing Provider Status 04/28/22 7:30 AM Lumbar Spine 2 or 3 Views Jared Mcdonald i; Henrique (Verified) Notes: (Lumbar Spine 2 or 3 Views) Reason For Exam: Pain RESULT: Lumbar Spine 2 or 3 Views Lumbar Spine 2 or 3 Views Hx of Present Illness: Pt ambulated to room. Pt reports spontaneous back pain while working tonight. Pt reports increase in walking since it's his first job since back surgery 2 years ago. Pt reportsR leg numbness sudden onset c R ankle pain. Pt denies BM urine.; Reason: Pain; Clinical Question(s): Spinal Stenosis COMPARISON: None. FINDINGS: Age-indeterminate T11 compression fracture with severe vertebral body height loss. Mild multifocal degenerative disc endplate spurring and disc space narrowing. Normal alignment. No spondylolysis or spondylolisthesis. Normal soft tissues. IMPRESSION: Age-indeterminate T11 compression fracture. WSN: [id number] Ordering Physician: Ky Lynn Dictated By: Tari Guerin MD Dictated Date/Time: 04/28/22 7:57 am Reviewed By: Tari Guerin MD Signed By: Tari Guerin MD Signed Date/Time: 04/28/22 7:57 am Transcribed By: CHELSEY Transcribed Date/Time: 04/28/22 7:55 am Vital Signs Most recent to oldest [Reference Range]: 1 2 3 Height 191 cm (04/28/22 6:15 AM) 191 cm (04/28/22 5:53 AM) Weight 160 kg (04/28/22 6:15 AM) 160 kg (04/28/22 5:53 AM) Oxygen Saturation [94-100 %] 100 % (04/28/22 2:26 PM) 100 % (04/28/22 12:37 PM) 99 % (04/28/22 11:38 AM) Pulse Rate [55-90 bpm] 84 bpm (04/28/22 2:26 PM) 79 bpm (04/28/22 12:37 PM) 97 bpm *H* (04/28/22 11:38 AM) Body Mass Index [18.5-24.99 kg/m2] 43.86 kg/m2 *>HHI* (04/28/22 5:53 AM) Blood Pressure [90-138/55-84 mm Hg] 138/75mm Hg (04/28/22 2:26 PM) 126/76mm Hg (04/28/22 12:37 PM) 134/71mm Hg (04/28/22 11:38 AM) Respiratory Rate [16-30 br/min] 18 br/min (04/28/22 2:26 PM) 18 br/min (04/28/22 12:37 PM) 18 br/min (04/28/22 11:38 AM) Temperature [96.8-100.4 DegF] 98.1 DegF (04/28/22 2:26 PM) 98.3 DegF (04/28/22 12:37 PM) 98.8 DegF (04/28/22 11:38 AM) Mode of Delivery (Oxygen) Room air (04/28/22 2:26 PM) Room air (04/28/22 12:37 PM) Room air (04/28/22 11:38 AM) Blood pressure sites Arm, left (04/28/22 2:26 PM) Arm, right (04/28/22 12:37 PM) Arm, right (04/28/22 11:38 AM) Temperature Route Oral (04/28/22 2:26 PM) Oral (04/28/22 12:37 PM) Oral (04/28/22 11:38 AM) Dry Weight 160 kg (04/28/22 6:15 AM) 160 kg (04/28/22 5:53 AM) Weight Obtained Via Standing scale (04/28/22 5:53 AM) Dry Weight Obtained Via Standing scale (04/28/22 5:53 AM) Social History Social History Type Response Smoking Status 10 or more cigarette s (1/2 pack or more)/day in last 30 days entered on: 04/28/22 Sex Note * Ruy FRY, Ale Diaz: PERFORM Event Display: Patient Education Leaflets Authored Date: [id number] Back Pain (Acute or Chronic) ?? [id number] Back Pain (Acute or Chronic) Back pain is one of the most common problems. The good news is that most people feel better in 1 to2 weeks, and most of the rest in 1 to 2 months. Most people can remain active. People who have pain??describe it differently???not??everyone is the same. ??? The pain can be sharp, stabbing, shooting, aching, cramping or burning. ??? Movement, standing,bending, lifting, sitting, or walking may worsen pain. ??? It can be limited to one spot or area, or it can be more generalized. ??? It can spread upwards, to the front, or go down your arms or legs (sciatica). ??? It can cause muscle spasm. Most of the time, mechanical problems with the muscles??or spine cause the pain. Mechanical problems??are usually caused by an injury to the muscles or ligaments. Illness can cause back pain, but it's usually not caused by a serious illness. Mechanical problems include:? Physical activity such as sports, exercise, work, or normal activity ??? Overexertion, lifting,pushing, pulling incorrectly or too aggressively ??? Sudden twisting, bending, or stretching from an accident, or accidental movement ??? Poor posture ??? Stretching or moving wrong, without noticingpain at the time ??? Poor coordination, lack of regular exercise (check with your doctor about this) ??? Spinal disc disease or arthritis ??? Stress Pain can also be related to , or illness such as appendicitis, bladder or kidney infections, kidney stones, and pelvic infections. Acute back pain usually gets better in??1 to 2 weeks. Back pain related to disk disease, arthritis in the spinal joints, or narrowing of the spinal canal (spinal stenosis) can become chronic and lastfor months or years. Unless you had a physical injury such as a car accident or fall, X-rays are usually not needed for the first assessment of back pain. If pain continues and does not respond to medical treatment, you may need X-rays and other tests. Home care Try this home care advice: ??? When in bed, try??to find a position of comfort. A firm mattress is best. Try lying flat on your back with pillows under your knees. You can also try lying on your side with your knees bent up toward your chest and a pillow between your knees. ??? At first, don't try to stretch out the sore spots. If there is a strain, it's not like the good soreness you get after exercising without an injury. In this case, stretching may make it worse. ??? Don't sit for long periods, as in a long car ride or during other??travel. This puts more stress on the lower back than standing or walking. ??? During the first 24 to 72 hours after an acute injury or flare up of chronic back pain, apply an ice pack to the painful area for 20 minutes and then remove it for 20 minutes. Do this over a period of 60 to 90 minutes or several times a day. This will reduce swelling and pain. Wrap the ice pack in a thintowel or plastic to protect your skin. ??? You can start with ice, then switch to heat. Heat (hot shower, hot bath, or heating pad) reduces pain and works well for muscle spasms. Heat can be applied to the painful area for 20 minutes then remove it for 20 minutes. Do this over a period of 60 to 90 minutes or several times a day. Don't sleep on a heating pad. It can lead to skin sweeney or tissue damage. ??? You can alternate ice and heat therapy. Talk with your doctor about??the best treatment for your back pain. ??? Therapeutic massage can help relax the back muscles without stretching them. ??? Be aware of safe lifting methods. Don't lift anything without stretching first. Medicines Talk to your doctor before using medicine, especially if you have other medical problems or are taking other medicines. ??? You may use wrhv-skh-uqmidkt medicine as directed on the bottle to control pain, unless another pain medicine was prescribed. Talk with your healthcare provider before using these medicines if you have chronic conditions such as diabetes, liver or kidney disease, stomach ulcers, or digestive bleeding. Also talk with your provider if you take blood thinners. ??? Be careful if you are given a prescription medicines, narcotics, or medicine for muscle spasms. They can cause drowsiness, affect your coordination, reflexes, and judgment. Don't drive or operate heavy machinery. ?? Follow-up care Follow up with your healthcare provider, or as advised.?? If X-rays were taken, you will be told of any new findings that may affect your care. ?? Call 911 Call 911 if any of the following occur: ??? Trouble breathing ??? Confusion ??? Very drowsy or trouble awakening ??? Fainting or loss of consciousness ??? Rapid or very slow heart rate ??? Loss of bowel or bladder control ?? When to seek medical advice Call your healthcare provider right away if any of these occur:? Pain gets worse or spreads toyour legs ??? Your bowel or bladder control changes ??? Fever ??? Blood in your urine ??? Weakness or numbness in one or both legs ??? Numbness in the groin or genital area ?? Last Reviewed Date: 2021 ?? [employer]. All rights reserved. This information is not intended as a substitute for professional medical care. Always follow your healthcare professional's instructions. ?? XR Lumbar spine 2 or 3 Views * [facility] , CIS S: TRANSCRIBE Tari Guerin MD: VERIFY Event Display: Result: Authored Date: [id number] Lumbar Spine 2 or 3 Views Hx of Present Illness: Pt ambulated to room. Pt reports spontaneous back pain while working tonight. Pt reports increase in walking since it's his first job since back surgery 2 years ago. Pt reportsR leg numbness sudden onset c R ankle pain. Pt denies BM urine.; Reason: Pain; Clinical Question(s): Spinal Stenosis COMPARISON: None. FINDINGS: Age-indeterminate T11 compression fracture with severe vertebral body height loss. Mild multifocal degenerative disc endplate spurring and disc space narrowing. Normal alignment. No spondylolysis or spondylolisthesis. Normal soft tissues. IMPRESSION: Age-indeterminate T11 compression fracture. WSN: [id number] Ordering Physician: Ky Lynn Dictated By: Tari Guerin MD Dictated Date/Time: 04/28/22 7:57 am Reviewed By: Tari Guerin MD Signed By: Tari Guerin MD Signed Date/Time: 04/28/22 7:57 am Transcribed By: CHELSEY Transcribed Date/Time: 04/28/22 7:55 am Patient Care team information Care Team Personnel Name: Erik Jovel III, MD Position: [facility] Ambulatory (view) Member Role: PCP Address: Address: [address] [place] [id number]- Name: Neema Ravi RN Position: [facility] ED RN W/OE and Tasks Member Role: Patient Care Provider Name: Ale Redmond MD Position: [facility] ED Medicine MD Member Role: Admitting Physician Address: Address: [address] [place] [address] Emergency Medicine [place], [place] [address] Care Team Related Persons Name: MAMADOU HOOVER Address: home [address] [place] [address] Name: CYN RODRÍGUEZ Address: [address] [place] [address]
[2024-01-26 22:42] LABS: Hematocrit 43.3 % (42.0-52.0); Hemoglobin 14.6 g/dl (14.0-18.0); Mean Corpuscular HGB Conc 33.7 g/dl (31.0-36.0); Mean Corpuscular Hemoglobin 30.1 pg (27.0-33.0); Mean Corpuscular Volume 89.3 fL (80.0-98.0); Platelet Count 155 X10*3/uL (160-400); Red Blood Count 4.85 X10*6/uL (4.60-5.80); Red Cell Distribution Width 13.2 % (11.0-16.0)
[2024-01-26 22:56] LABS: Anion Gap 11 (12-20); Blood Urea Nitrogen 12 mg/dL (9-16); Calcium 8.7 mg/dL (8.4-10.2); Carbon Dioxide 27 mmol/L (22-29); Chloride 106 mmol/L (96-108); Creatinine Clr Calc Pharmacy 141.3; Estimated Glomerular Filt Rate > 60; Glucose Random 100 mg/dL (60-115); Magnesium 2.1 mg/dL (1.6-2.6); Potassium 4.2 mmol/L (3.3-5.1); Sodium 140 mmol/L (135-145)
[2024-01-26 23:02] LABS: Troponin-I High Sensitivity 6.2 ng/L (<3.5-35.0)
[2024-01-26 23:19] LABS: Influenza A PCR NEGATIVE (Negative); Influenza B PCR NEGATIVE (Negative); Resp Syncy Virus RNA Qual PCR NEGATIVE (Negative); SARS COV2 PCR INHOUSE POSITIVE (Negative)
[2024-01-27 01:23] VITALS: BP 122/86; PULSE 73; RESP 19; TEMP 38.2; O2SAT 97
--- NOTE | 2024-01-27 01:49 | ED.URI ---
HPI - URI/Sore Throat General Chief Complaint: Upper Respiratory Symptoms Stated Complaint: L eye pain/Difficulty breathing Time Seen by Provider: 01/27/24 01:49 Source: patient Mode of arrival: ambulatory Limitations: no limitations History of Present Illness ED Provider: Dr. Britt HPI Narrative: 4 days of fever, cough, headache and myalgias, not sleeping because he is coughing. Related Data Home Medications ?Medication ?Instructions ?Recorded ?Confirmed duloxetine 60 mg capsule,delayed 60 mg PO DAILY 02/20/20 06/04/20 release levothyroxine 88 mcg tablet See Rx Instructions .Route .COMPLEX 02/20/20 06/04/20 lisinopril 20 mg tablet 20 mg PO DAILY 02/20/20 06/04/20 methocarbamol 750 mg tablet 750 mg PO TID 02/20/20 06/19/20 testosterone 1.62 % (20.25 mg/1.25 1 packet transdermal DAILY 06/04/20 06/04/20 gram) transdermal gel packet Previous Rx's ?Medication ?Instructions ?Recorded walker #1 ea 05/08/20 acetaminophen 500 mg tablet 1,000 mg (2 x 500 mg) PO Q6H PRN 01/27/24 (Tylenol Extra Strength) fever or pain #20 tabs ondansetron 4 mg disintegrating 4 mg PO Q8H 4 days #12 tabs 01/27/24 tablet opuuekfynxkjp-PA-bwykctmzlcr 5 10 ml PO Q4H PRN cough #473 mL 01/27/24 mg-10 mg-100 mg/5 mL oral liquid Allergies Allergy/AdvReac Type Severity Reaction Status Date / Time allopurinol [ALLOPURINOL] Allergy Unknown RASH Verified 01/26/24 22:16 blueberry [BLUEBERRY] Allergy Unknown UNKNOWN Verified 01/26/24 22:16 latex [LATEX] Allergy Unknown RASH Verified 01/26/24 22:16 DRAGON FRUIT Allergy Unknown HIVES Uncoded 01/26/24 22:16 dragon fruit Allergy Unknown unknown Uncoded 01/26/24 22:16 sports tape Allergy Unknown unknown Uncoded 01/26/24 22:16 Review of Systems Review of Systems: Yes all other systems are reviewed and are negative Neurologic: Denies Sensory deficit (Neuro) PMFSH Past Medical History Medical History Sleep apnea Hypothyroidism Anemia Recurrent major depression Osteoarthritis Borderline diabetes Obesity HTN (hypertension) GERD (gastroesophageal reflux disease) Gout Asthma Depression PTSD (post-traumatic stress disorder) Surgical History H/O adenoidectomy History of tonsillectomy History of appendectomy Social History Social History Household Members: None Alcohol intake: never Comment: pt sleeping at this time Patient Tobacco Use Status: Never used Tobacco Smoked in Last 30 Days: No Use of substances other than those prescribed or required for medical reasons: No Advance Directives: Yes Advance Directives on File: Yes Advance Directives Date on File: 05/14/20 Do you have a plan to hurt others: No Plan Physical Exam Vital Signs: Vital Signs: Last Vital Signs Temp 98.3 F 01/27/24 04:31 Pulse 76 01/27/24 04:31 Resp 19 01/27/24 04:31 BP 141/72 H 01/27/24 04:31 Pulse Ox 96 01/27/24 04:31 O2 Del Method Room Air 01/27/24 04:31 BMI result Body Mass Index 44.7 Const: Other: obese male looking older than stated age, coughing Orientation/consciousness: oriented to person and patient oriented x3 Limitations: no limitations HEENT: Head: Yes normal to inspection Ears: external ears normal General nose exam: Normal external nose present Mouth: Normal oral and palatal mucosa present and oropharynx normal Throat: Yes posterior oropharynx normal Eyes: General: appearance normal, both eyes and all related structures Neck: Other: supple Neck: Yes normal visual inspection Chest: Chest palpation & inspection: normal inspection of the chest Resp: Other: slight wheeze with cough Cardio: Jugular venous distension: no JVD Rate: regular rate Rhythm: regular rhythm Heart sounds: S1 normal heart sound present and S2 normal heart sound present GI: Inspection: Yes normal to inspection Palpation (GI): Soft to palpation, nontender and No hepatosplenomegaly present Auscultation: normal bowel sounds : General: Yes no CVA tenderness Back/Spine/Pelvis: Back: no CVA tenderness Skin: General skin exam: no rashes or lesions noted Neuro: General: oriented to person and patient oriented x3 Cranial nerves: Yes CN's II-XII intact bilaterally Motor exam (neuro): 5/5 motor strength present throughout Sensory Exam: No Sensory deficit (Neuro) Extrem: General: Yes normal to inspection Psych: Appearance: grossly normal Course Reevaluation(s) Reevaluation #1: patient improved with medication will dc home Time: 04:30 Medications Administered Discontinued Medications Generic Name Dose Route Start Last Admin Trade Name Rosalinda PRN Reason Stop Dose Admin Acetaminophen 975 mg 01/27/24 01:58 01/27/24 02:27 Acetaminophen 325 Mg Tablet PO 01/27/24 01:59 975 mg ONCE ONE Administration Guaifenesin 20 ml 01/27/24 01:58 01/27/24 02:27 Guaifenesin 200 Mg/10 Ml 10 Ml Liquid PO 01/27/24 01:59 20 ml ONCE ONE Administration Ketorolac Tromethamine 60 mg 01/27/24 01:58 01/27/24 02:27 Ketorolac Tromethamine 60 Mg/2 Ml Vial IM 01/27/24 01:59 60 mg ONCE ONE Administration Ondansetron HCl 4 mg 01/27/24 01:58 01/27/24 02:27 Ondansetron Odt 4 Mg Tab.Rapdis TRANSLINGU 01/27/24 01:59 4 mg ONCE ONE Administration Medical Decision Making Differential Diagnosis Differential Diagnoses: The differential diagnosis associated with the presentation includes (covid, pneumonia, flu, viral illness) Admission/Observation Consideration of admission/observation: Escalation of care including admission/observation considered (upon arrival patient considered for admission) Lab Data 01/26/24 22:35 01/26/24 22:35 Labs: Lab Results 01/26/24 Range/Units 22:35 WBC 4.0 L (4.8-10.8) X10*3/uL RBC 4.85 (4.60-5.80) X10*6/uL Hgb 14.6 (14.0-18.0) g/dl Hct 43.3 (42.0-52.0) % MCV 89.3 (80.0-98.0) fL MCH 30.1 (27.0-33.0) pg MCHC 33.7 (31.0-36.0) g/dl RDW 13.2 (11.0-16.0) % Plt Count 155 L D (160-400) X10*3/uL MPV 11.0 (9.4-12.4) fL Absolute Nucleated RBC 0.000 (0.0-0.012) X10*3/uL Nucleated RBC % (auto) 0.0 (0.0-0.2) /100WBC Sodium 140 (135-145) mmol/L Potassium 4.2 (3.3-5.1) mmol/L Chloride 106 (96-108) mmol/L Carbon Dioxide 27 (22-29) mmol/L Anion Gap 11 L (12-20) BUN 12 (9-16) mg/dL Creatinine 0.92 (0.5-1.4) mg/dL Estim Creat Clear Calc 141.3 Estimated GFR > 60 Random Glucose 100 (60-115) mg/dL Calcium 8.7 D (8.4-10.2) mg/dL Magnesium 2.1 (1.6-2.6) mg/dL Troponin I High Sens 6.2 (<3.5-35.0) ng/L Influenza Type A (PCR) NEGATIVE (Negative) Influenza Type B (PCR) NEGATIVE (Negative) RSV RNA Qual (PCR) NEGATIVE (Negative) SARS-CoV-2 RNA (RT-PCR) POSITIVE A (Negative) Independent Interpretation I performed an independent interpretation of an: Plain X-Ray (no infiltrate) Prescription Management I considered prescription management with: Antibiotic (no evidence of bacterial infection, xray no infiltrate) Chronic Conditions Patient?s care impacted by: Other (psychiatric illness) Discharge Plan Discharge Clinical Impression: COVID-19 Patient Disposition: Home, Self-Care Instructions: COVID-19 (Coronavirus Disease 2019) (ED) Prescriptions: New gzaqbumhogzcn-SA-obmfklulfvm 5-10-100 mg/5 mL liquid 10 ml PO Q4H PRN (Reason: cough) Qty: 473 0RF ondansetron 4 mg tablet,disintegrating 4 mg PO Q8H 4 Days Qty: 12 0RF acetaminophen [Tylenol Extra Strength] 500 mg tablet 1,000 mg PO Q6H PRN (Reason: fever or pain) Qty: 20 0RF No Action (DME) walker Misc See Rx Instructions .ROUTE .MEDSUPPLY Qty: 1 0RF Rx Instructions: As directed testosterone 1.62 % (20.25 mg/1.25 gram) Gel In Packet 1 packet TRANSDERMAL DAILY lisinopril 20 mg tablet 20 mg PO DAILY methocarbamol 750 mg tablet 750 mg PO TID duloxetine 60 mg capsule,delayed release(DR/EC) 60 mg PO DAILY levothyroxine 88 mcg tablet See Rx Instructions .ROUTE .COMPLEX Rx Instructions: Take 1 tab 6 days a week. On Saturdays take 2 tabs. Referrals: Erik Jovel III, MD [Primary Care Provider] - 5 days Print Language: Vietnamese
[2024-01-27 02:20] VITALS: O2SAT 97
[2024-01-27] MEDS: Acetaminophen 325 MG TABLET 975 MG PO (02:27)
[2024-01-27] MEDS: Ondansetron ODT 4 MG TAB.RAPDIS TRANSLINGU (02:27)
[2024-01-27] MEDS: guaiFENesin 200 MG/10 ML 10 ML LIQUID 20 ML PO (02:27)
[2024-01-27] MEDS: Ketorolac Tromethamine 60 MG/2 ML VIAL IM (02:27)
[2024-01-27 04:31] VITALS: BP 141/72; PULSE 76; RESP 19; TEMP 36.8; O2SAT 96
== END 2024-01-27 05:19 | disposition home or self-care (01) ==
PROVIDERS: Emergency Provider Emergency Medicine; PCP Internal Medicine
DX: U07.1 COVID-19 (principal); R42 Dizziness and giddiness; H57.12 Ocular pain, left eye; R06.02 Shortness of breath; R05.9 Cough, unspecified; R50.9 Fever, unspecified; R51.9 Headache, unspecified; M79.10 Myalgia, unspecified site; Z79.899 Other long term (current) drug therapy
CPT/HCPCS: 0241U; 36415; 71046; 80048; 83735; 84484; 85027; 93005; 96372; 99284; 99285; J1885

== ENCOUNTER 2025-04-13 14:58 | Outpatient (AMB) | payer OTHER, SELFPAY ==
--- NOTE | 2025-04-13 15:04 | A.PHYSOV ---
Vital Signs 04/13/25 15:07 Height 6 ft 3 in Weight 346 lb BMI 43.2 Intake Visit Reasons: FU AFTER INJECTION 02/17/25 Intake Note: Patient is a 59 year old male in office today for follow up after Left L4-5 Epidural steroid injection 02/17/25. [place] good for a week [employer] Worker Required: No Allergies allopurinol (ALLOPURINOL) Allergy (Unknown, Verified 04/13/25 15:06) RASH blueberry (BLUEBERRY) Allergy (Unknown, Verified 04/13/25 15:06) UNKNOWN latex (LATEX) Allergy (Unknown, Verified 04/13/25 15:06) RASH DRAGON FRUIT Allergy (Unknown, Uncoded 01/26/24 22:16) HIVES dragon fruit Allergy (Unknown, Uncoded 01/26/24 22:16) unknown sports tape Allergy (Unknown, Uncoded 01/26/24 22:16) unknown HPI Comments Details: History of Present Illness The patient is a 59 year old male presenting for a follow-up visit for chronic lower back pain and lumbar radiculitis. The onset of his symptoms was in February 2024, and he has a history of successful bilateral L5 transforaminal injections on July 16, 2020. A recent lumbar sacral spine MRI on January 12, 2025, demonstrated a left paracentral disc extrusion at the L3-L4 level, with contact of the descending left L4 nerve root. He subsequently underwent a left L4-L5 interlaminar epidural injection on February 17, 2025. Patient reports that after the initial procedural pain subsided, his pain returned and has been worsening. While the procedure did not provide significant pain relief, he did feel a looseness in his legs and hips, which were previously tense and tight. He continues to experience sciatic pain, which occurs mostly down the left leg but sometimes switches to the right, and the pain has also started to move across the middle of his back. Recently, after shoveling, he was unable to do anything else for the rest of the day and had to lie down due to leg weakness and numbness. He reports his pain is present even while sitting and sometimes uses a cane because his legs get weak. Pain Description - Location: The patient experiences chronic lower back pain and sciatic pain that travels down his legs, primarily on the left side but occasionally on the right. - Character: The pain is described as sciatic, and he reports his legs were previously tense and tight. - Onset: Symptoms began in February 2024. - Exacerbating factors: Pain is exacerbated by activity, such as shoveling, and is also present while sitting. - Associated symptoms: He experiences leg numbness and weakness, particularly after exertion. - Interference with function: After shoveling, he was unable to perform any other activities for the rest of the day. Results - Imaging: - Lumbar sacral spine MRI (01/12/2025): Demonstrated a left paracentral disc extrusion at the L3-L4 level with contact of the descending left L4 nerve root in the subarticular zone. [facility] Medical History (Updated 04/13/25 @ 15:54 by Xavier Aponte DO) Lumbar radiculitis Lumbar disc herniation Sleep apnea Hypothyroidism Anemia Recurrent major depression Osteoarthritis Borderline diabetes Obesity HTN (hypertension) GERD (gastroesophageal reflux disease) Gout Asthma Depression PTSD (post-traumatic stress disorder) Surgical History H/O adenoidectomy History of tonsillectomy History of appendectomy Social History Household Members: None Alcohol intake: current Alcohol intake frequency: a few times a month Patient Tobacco Use Status: Never used Tobacco Substance Use Type: Marijuana Advance Directives Date on File: 05/14/20 Current occupational status: retired Review of Systems Narrative Review of Systems - Musculoskeletal: Reports chronic lower back pain with radiation into the legs, predominantly on the left side. - Neurological: Reports episodes of leg numbness and weakness, particularly after physical activity. Patient denies any change in bowel bladder habits, he denies any fever or chills. Physical Exam Exam Exam: Physical Exam - Back: Palpation reveals tenderness over the lumbar paraspinal muscles at the L4-L5 level, more prominent on the left side. Gait was waddling without antalgia. Heel walk and toe walk were not tested. Dural tension signs were negative. Lumbar range of motion was restricted in all planes. Neurological examination was generally nonfocal with uniformly diminished muscle stretch reflexes. Patient demonstrated no upper motor neuron signs. Vital Signs: BMI result Body Mass Index 43.2 Assessment & Plan Assessment & Plan (1) Lumbar disc herniation: Code(s): M51.26 - Other intervertebral disc displacement, lumbar region Category: Medical (2) Lumbar radiculitis: Code(s): M54.16 - Radiculopathy, lumbar region Category: Medical Plan Pain Management - Analgesia: A left L4-L5 interlaminar epidural injection on February 17, 2025, provided minimal and temporary benefit, mainly loosening his legs. - Analgesia: He previously had significant relief from bilateral L5 transforaminal injections in July 2020. - Activities of Daily Living: Recent strenuous activity (shoveling) resulted in severe symptoms, including leg numbness, requiring him to lie down for the remainder of the day. - Activities of Daily Living: The patient sometimes uses a cane due to episodes of leg weakness. Plan Patient was informed and verbally consented to the use of an ambient scribe for clinic note documentation during this visit. 1. Lumbar Disc Extrusion With Radiculopathy The patient's symptoms are attributable to an L3-L4 disc extrusion with contact of the left L4 nerve root, confirmed by a recent MRI. His recent left L4-L5 interlaminar epidural steroid injection provided minimal therapeutic benefit. Given the limited success of the recent procedure and his history of a positive response to transforaminal injections in 2020, the plan is to proceed with a left L4 transforaminal epidural steroid injection. This will be performed in the office without sedation, as per the patient's agreement. A surgical consultation was discussed as a future option if conservative measures, including this next injection, fail to provide adequate relief. Discussion Notes I discussed with the patient that his ongoing pain is consistent with his MRI findings of a left L3-L4 extruded disc that is pinching the left L4 nerve root. We reviewed that the recent interlaminar epidural injection did not provide significant relief. I presented the options of trying a different type of injection or considering a surgical consultation to remove the disc fragment. The patient agreed to try another injection. I recommended a left L4 transforaminal epidural steroid injection, explaining that this approach from the side targets the nerve more directly than the previous approach from the middle. Patient Instructions - We will try a different type of injection, called a left L4 transforaminal injection, to help with your back and leg pain. - Our office staff will call you to schedule the appointment for this procedure. - The procedure will be done in our office while you are awake. - Continue to be careful with activities like shoveling that could make your pain worse. - It is okay to use your cane for support if you feel your legs are weak. Coding Level of Care Code Est Pt Level 4 (62133) Complex visit Add On G2211 Diagnoses Lumbar disc herniation M51.26 Lumbar radiculitis M54.16
[2025-04-13 15:07] VITALS: BMI 43.2
--- OUTSIDE RECORDS SUMMARY | 2025-04-13 21:19 | XMS_ITS | Clinical Summary ---
Author Organization [facility] [address] [place] [address] [place] [address] Phone Care Team Providers Care Anesthesiologist Assistant Certified Name Role Phone Erik Jovel MD Primary Care Provider [phone] Allergies Active Allergy Reactions Criticality Noted Date Comments Adhesive Tape-Silicones Rash 02/21/2014 Allopurinol Rash 01/07/2011 Blueberry Flavor Hives 08/01/2015 Colchicine Diarrhea,Rash 02/14/2019 Fruit Extracts Hives Medium 10/26/2018 Allergic to Blueberries, dragon fruit Medications ammonium lactate (LAC-HYDRIN) 12 % lotion Apply to soles of feet daily. At night wear socks to bed 03/06/2022 Active CHOLECALCIFEROL , VITAMIN D3, ORAL Take 1 tablet by mouth daily. 05/16/2021 Active clotrimazole (LOTRIMIN) 1 % cream Apply to skin and toenails daily for 12 weeks 03/06/2022 Active methocarbamoL (ROBAXIN) 750 mg tablet Take 1 Tablet by mouth 3 times daily. 02/19/2023 Active levothyroxine (SYNTHROID, LEVOTHROID) 88 mcg tablet Take 1 tablet by mouth daily Thursday through Thursday. Take 2 tablets by mouth on Thursday only. 102 tablet 1 12/23/2024 Active DULoxetine (CYMBALTA) [address] capsule Take 1 capsule (30 mg total) by mouth 1 (one) time each day. Do not crush or chew. 90 capsule 1 12/30/2024 Active lisinopriL (PRINIVIL,ZESTR IL) 10 mg tablet Take 1 tablet (10 mg total) by mouth 1 (one) time each day. 90 tablet 02/23/2025 Active Active Problems Problem Noted Date Diagnosed Date Hypothyroidism 05/12/2024 Morbid obesity with BMI of 4 0.0-44.9, adult ([facility], [facility]) 05/12/2024 Prediabetes 02/17/2018 Obstructive sleep apnea 10/09/2017 Overview (05/12/2024): UNTREATED (Feb 2022) [facility] Home Polysomnogram: Date 09/29/2017; AHI 7, Unclassified apneas 0; Obstructive apneas 12; Central apneas 0; Mixed apneas 0; hypopneas 20; average oxygen saturation 93% (lowest 87% without saturations <88% for 5% or more of study) [facility] Sleep Center Polysomnogram treatment study. Date 11/12/2018. Wt 395#; BMI 49; SE 7 % SM 79 %; spent 13 % of the study in REM. On CPAP @ 6; RDI 2.7 (AHI 2.7), Central apneas 2; Obstructive apneas 0; Mixed apneas 0; hypopneas 0; RERAs 0; and, average oxygen saturation was 93%. For the entire study, PLMs ~0. - Obstructive Sleep Apnea - mild; mostly hypopneas with obstructive apneas; without sleep related hypoventilation by 2017 home polysomnogram. COPD (chronic obstructive pu lmonary disease) ([facility], [facility]) 12/19/2014 Depression 12/12/2014 Anxiety 11/03/2014 Opioid dependence ([facility], [facility]) Alcohol abuse, in remission 08/10/2012 Shoulder impingement 06/19/2009 Overview (05/12/2024): Decompressive surgery, 2009 - Dr. Mcmanus HTN (hypertension) 04/20/2007 Chondromalacia, patella 04/13/2007 Overview (05/12/2024): Right knee with a meniscal tear - 2002- Esophageal reflux 04/13/2007 Overview (05/12/2024): History of GI bleed on ibuprogen in 20's Asthma 04/05/2006 Gout, unspecified 04/05/2006 Overview (05/12/2024): Acute lower extremity attacks since 2003 was on alllopurinol - stopped due to itchy rash so it was stopped. Febuxostat started in June 2014 Encounters Date Type Department Care Team Description 01/12/2025 6:21 PM EDT - 01/12/2025 11:59 PM EDT Hospital Encounter [facility] [address] [place] [address] Radiculopathy; Spinal stenosis Discharge Disposition: Home or Self Care from Last 3 Months Immunizations Immunization Administration Dates Next Due Influenza Quadravalent, MDCK , 0.5ml, preservative free (Flucelvax) 6mo and older 03/03/2022,05/16/2021,02/02/2020,06/22 Influenza Quadravalent, MDCK , 0.5ml, with preservative (Flucelvax) 6mo and older 04/27/2017 Influenza trivalent, 0.5mL, preservative free (Fluarix; FluLaval; Fluzone) ages 6mo and older (Afluria) 3 years and older 01/15/2024,04/08/2019,03/14/2016,06/28,02/21/2014,02/01/2013,03/16/2012 ,04/24/2011,04/16/2009,02/22/2008,09/2006,05/14/2005 [employer] SARS-CoV-2 COVID -19, vector-nr, rS-Ad26, preservative free 05/20/2021,09/12/2020 Pneumococcal polysaccharide 23 valent (Pneumovax 23) 2yo and older 04/27/2017,03/14/2016 Td Tetanus diptheria (Tdvax) 7yo and older 04/23/2004 Td, Unspecified 04/23/2004 Tdap Tetanus diptheria acell ular pertussis (Boostrix; Adacel) 7yo and older 02/19/2023 Surgical History Surgery Date Site/Laterality Comments APPENDECTOMY PROCEDURE: HISTORICAL APPENDECTOMY OTHER SURGICAL HISTORY 2009 PROCEDURE: NM SURGICAL ARTHROSCOPY DAXA W/CORACOACRM LIGM RLS; COMMENT: Left - Dr. Luber TONSILLECTOMY PROCEDURE: HISTORICAL TONSILLECTOMY ADENOIDECTOMY PROCEDURE: HISTORICAL ADENOIDECTOMY COLONOSCOPY 09/29/2018 PROCEDURE: HISTORICAL COLONOSCOPY; COMMENT: negative but incomplete and fair prep Medical History Medical History Date Comments Unspecified asthma(493.90) 04/05/2006 DX:Un specified asthma(493.90) Chondromalacia, patella 04/13/2007 DX:Chond romalacia, patella; COMMENT: Right knee with a meniscal tear - 2002-08 Gout, unspecified 04/05/2006 DX:Gout, unspe cified; COMMENT: Acute lower extremity attacks since 2003 Now on alllopurinol Esophageal reflux 04/13/2007 DX:Esophageal reflux; COMMENT: History of GI bleed on ibuprogen in Unspecified essential hypertension DX:Unspecified essential hypertension HTN (hypertension) 04/20/07 DX:HTN (hyper tension) Shoulder impingement 06/19/2009 DX:Shoulder impingement COPD (chronic obstructive pu lmonary disease) ([facility] V24, [facility] V28) 12/19/2014 DX:COPD (chronic o bstructive pulmonary disease) ([facility]) Hypothyroidism DX:Hypothyroidis m Hypothyroidism 05/12/2024 Family History Medical History Relation Name Comments Colon cancer Aunt Arthritis Maternal Grandfather gout Glaucoma Maternal Grandfather Heart attack Maternal Grandfather Glaucoma Maternal Grandmother Heart attack Maternal Grandmother Blindness Neg Hx Cataracts Neg Hx Macular degeneration Neg Hx Strabismus Neg Hx Relation Name Status Comments Aunt Maternal Grandfather Maternal Grandmother Social History Tobacco Use Types Packs/Day Years Used Date Smoking Tobacco: Every Day Cigarettes 0.5 40.9 Started: 05/11/1984 Smokeless Tobacco: Never Quit: 07/04/2015 Tobacco Cessation:Ready to Q uit: Not Asked; Counseling Given: Not Answered Alcohol Use Standard Drinks/Week Comments No 0 (1 standard drink = 0.6 oz pur e alcohol) Housing Instability Answer Date Recorde d Are you worried that in the next 2 months you may not have stable housing? No 11/17/2024 Food Access & Nutrition Answer Date Rec orded Do you have access to a vari ety of food including fruits and vegetables? Yes 11/17/2024 Health Literacy Answer Date Recorded How often do you need to hav e someone help you when you read instructions, pamphlets, or other written material from your doctor or pharmacy? Never 11/17/2024 Caregiver: How often do you need to have someone help you when you read instructions, pamphlets, or other written material from your doctor or pharmacy? Not on file 11/17/2024 Financial Risk Answer Date Recorded How hard is it for you to pa y for the very basics like food, housing, medical care, and air conditioning / heating? Somewhat hard 11/17/2024 Transportation Answer Date Recorded Has the lack of transportati on kept you from meetings, work, or from getting things needed for daily living? No Has the lack of transportati on kept you from medical appointments or from getting medications? No 11/17/2024 Social Isolation Answer Date Recorded How often do you feel lonely or isolated from those around you? Sometimes 11/17/2024 Food Risk Answer Date Recorded Within the past 12 months we worried whether our food would run out before we got money to buy more. Never true 11/17/2024 Within the past 12 months th e food we bought just didn't last and we didn't have money to get more. Never true 11/17/2024 Dependent Care Answer Date Recorded Do you need help finding or paying for care for your loved ones. For example, children's literature professor or elderly care for an older adult? No 11/17/2024 Education Answer Date Recorded Do you think completing more education or training, like finishing a GED, going to college, or learning a trade, would be helpful for you? N/A 11/17/2024 Employment and Income Answer Date Recor ded During the last four weeks, have you been actively looking for work? No 11/17/2024 Living Situation Answer Date Recorded What is your living situation? Unrecognized valu e 11/17/2024 Sex and Gender Information Value Date Recorded Sex Assigned at Not on file Legal Sex Male 3:55 AM EST Gender Identity Not on file Sexual Orientation Not on file Obstetrics History Last Filed Vital Signs Vital Sign Reading Time Taken Comments Blood Pressure 132/78 11/24/2024 4:08 PM EDT Pulse 82 11/24/2024 3:29 PM EDT Temperature 35.2 C (95.4 F) 11/24/2024 3:29 PM EDT Respiratory Rate 18 11/24/2024 3:29 PM EDT Oxygen Saturation 95% 11/24/2024 3:29 PM EDT Inhaled Oxygen Concentration - - Weight 156 kg (343 lb 14.4 oz) 11/24/2024 3:29 P M EDT Height 190.5 cm (6' 3 ) 11/24/2024 3:29 PM EDT Body Mass Index 42.98 11/24/2024 3:29 PM EDT Plan of Treatment Upcoming Encounters Date Type Department Care Team (Late st Contact Info) Description 06/20/2025 1:15 PM EST Office Visit Adult Medicine [facility] [address] [place] [phone] Erik Jovel MD [address] [place] [phone] Health Maintenance Due Date Last Done Comments Hepatitis A Vaccines (1 of 2 - Risk 2-dose series) 1983 RSV Immunization Adult Patients (1 - Risk 50-74 years 1-dose series) 2014 Zoster Vaccines (1 of 2) 2014 Pneumococcal Vaccine: 50+ Years (2 of 2 - PCV) 04/27/2018 04/27/2017, 03/14/2016 HIV Screening 04/19/2022 Lung Cancer Screening (Low Dose CT) 04/19/2022 COVID-19 Vaccine (3 - season) 2025 05/20/2021, 09/12/2020 Influenza Vaccine (#1) 2025 , 03/03/2022, 05/16/2021, Additional history exists Social Influencers of Health Screening 11/17/2025 11/17/2024 Hypertension/CHF/CAD Annual BMP Blood Test 12/13/2025 12/13/2024, 06/15/2024, 08/25/2023 Colorectal Cancer Screening: Colonoscopy 09/29/2028 09/29/2018 Cholesterol Screening (Lipid Panel) 12/13/2029 12/13/2024, 05/02/2022 DTaP,Tdap,and Td Vaccines (4 - Td or Tdap) 02/19/2033 02/19/2023, 04/23/2004, 04/23/2004 Hepatitis C Screening Completed 07/26/2007 Depression Screening Completed 11/17/2024 HIB Vaccines Aged Out No longer eligi ble based on patient's age to complete this topic HPV Vaccines Aged Out No longer eligi ble based on patient's age to complete this topic Hepatitis B Vaccines Aged Out No long er eligible based on patient's age to complete this topic IPV Vaccines Aged Out No longer eligi ble based on patient's age to complete this topic MMR Vaccines Aged Out No longer eligi ble based on patient's age to complete this topic Meningococcal ACWY Vaccine Aged Out N o longer eligible based on patient's age to complete this topic Meningococcal B Vaccine Aged Out No l onger eligible based on patient's age to complete this topic RSV Immunization Patients Under 20 months Aged Out No longer eligible based on patient's age to complete this topic Varicella Vaccines Aged Out No longer eligible based on patient's age to complete this topic Procedures Procedure Name Priority Date/Time Associated Diagnosis Comments MR LUMBAR SPINE WO CONTRAST Routine 01/12/2025 7:33 PM EDT Radiculopathy Spinal stenosis BASIC METABOLIC PANEL Routine 12/13/2024 4:55 PM EDT Hypertension, unspecified type Prediabetes LIPID PANEL WITH REFLEX TO DIRECT LDL Routine 12/13/2024 4:55 PM EDT Prediabetes HM COLONOSCOPY Routine 09/29/2018 HEPATITIS C SCREENING Routine 07/26/2007 from Last 3 Months or Most Recently Relevant to Health Maintenance Results * MR Lumbar Spine wo Contrast (01/12/2025 7:33 PM EDT) Anatomical Region Laterality Modality L-spine, Spine Magnetic Resonan ce 01/16/2025 7:41 PM EDT Impressions 01/16/2025 7:47 PM EDT Small left paracentral extrusion at L3-4 extending caudally posterior to L4 and contacting the descending left L4 nerve in the subarticular zone, new compared to 2020. No significant lumbar foraminal or spinal canal stenosis. -------- FINAL REPORT -------- Dictated By: LISSETTE FOURNIER Dictated Date: 01/16/2025 19:41 ET Assigned Physician: LISSETTE FOURNIER Reviewed and Electronically Signed By: LISSETTE FOURNIER Signed Date: 01/16/2025 19:47 ET Workstation ID: [id number] Transcribed By: Self Edit Transcribed Date: 01/16/2025 19:41 ET Narrative 01/16/2025 7:47 PM EDT PROCEDURE: Lumbar spine MRI INDICATION: Pain TECHNIQUE: Multiplanar, multisequence MRI of the Lumbar spine Without contrast. COMPARISON: 07/20/2020 FINDINGS: Lumbar lordosis is maintained. Focal kyphosis at T10-11. Slight levoconvex thoracolumbar curvature. Unchanged, chronic T11 compression fracture with complete height loss anteriorly. Minimal retropulsion of posterior superior aspect of the vertebral bodies with the spinal canal without significant spinal canal stenosis or adjacent cord signal abnormality. No acute fracture or suspicious marrow replacing lesion. Benign intraosseous hemangioma within the T12 vertebral body. Mild degenerative loss of normal disc height and signal at L3-4 and L4-5. Lumbar facet joints are within normal limits. Conus medullaris is normal and terminates at L1. No epidural collection or mass is seen within the spinal canal. Paraspinal muscles are within normal limits. Visualized intra-abdominal and pelvic structures are within normal limits. Findings by level: L1-2: No focal disc protrusion, foraminal stenosis, or spinal canal stenosis. L2-3: No focal disc protrusion, foraminal stenosis, or spinal canal stenosis. L3-4: Diffuse disc bulge with superimposed small left paracentral extrusion extending caudal posterior to L4 by approximately 10 mm and contacting the descending left L4 nerve in the subarticular zone. No spinal canal or foraminal stenosis. L4-5: Diffuse disc bulge with endplate spurring. No foraminal or spinal canal stenosis. L5-S1: No foraminal or spinal canal stenosis. Procedure Note Lissette Fournier MD - 01/16/2025 PROCEDURE: Lumbar spine MRI INDICATION: Pain TECHNIQUE: Multiplanar, multisequence MRI of the Lumbar spine Withoutcontrast. COMPARISON: 07/20/2020 FINDINGS: Lumbar lordosis is maintained. Focal kyphosis at T10-11. Slightlevoconvex thoracolumbar curvature. Unchanged, chronic T11 compression fracture with complete height lossanteriorly. Minimal retropulsion of posterior superior aspect of thevertebral bodies with the spinal canal without significant spinal canalstenosis or adjacent cord signal abnormality. No acute fracture or suspicious marrow replacing lesion. Benignintraosseous hemangioma within the T12 vertebral body. Mild degenerative loss of normal disc height and signal at L3-4 andL4-5. Lumbar facet joints are within normal limits. Conus medullaris is normal and terminates at L1. No epidural collectionor mass is seen within the spinal canal. Paraspinal muscles are within normal limits. Visualized intra-abdominaland pelvic structures are within normal limits. Findings by level: L1-2: No focal disc protrusion, foraminal stenosis, or spinal canalstenosis. L2-3: No focal disc protrusion, foraminal stenosis, or spinal canalstenosis. L3-4: Diffuse disc bulge with superimposed small left paracentralextrusion extending caudal posterior to L4 by approximately 10 mm andcontacting the descending left L4 nerve in the subarticular zone. Nospinal canal or foraminal stenosis. L4-5: Diffuse disc bulge with endplate spurring. No foraminal or spinalcanal stenosis. L5-S1: No foraminal or spinal canal stenosis. IMPRESSION: Small left paracentral extrusion at L3-4 extending caudally posterior toL4 and contacting the descending left L4 nerve in the subarticular zone,new compared to 2020. No significant lumbar foraminal or spinal canalstenosis. -------- FINAL REPORT -------- Dictated By: LISSETTE FOURNIER Dictated Date: 01/16/2025 19:41 ET Assigned Physician: LISSETTE FOURNIER Reviewed and Electronically Signed By: LISSETTE FOURNIER Signed Date: 01/16/2025 19:47 ET Workstation ID: [id number] Transcribed By: Self Edit Transcribed Date: 01/16/2025 19:41 ET Xavier Aponte DO IMG MRI PROCEDURES Final Result * Lipid panel with reflex to direct LDL (12/13/2024 4:55 PM EDT) Cholesterol 134 0 - 200 mg/dL LAB CHEMISTRY METHOD 12/13/2024 7:19 PM EDT [facility] Triglycerides 126 0 - 150 mg/dL LAB CHEMISTRY METHOD 12/13/2024 7:19 PM [facility] HDL 41 >=40 mg/dL LAB CHEMISTRY METHOD 12/13/2024 7:19 PM [facility] LDL Calculated 68 0 - 100 mg/dL LAB CHEMISTRY METHOD 12/13/2024 7:19 PM [facility] Comment:Estimated LDL Calcul ated using equation: Total cholesterol - HDL cholesterol - (Triglycerides/5) VLDL Cholesterol Luis A 25.2 mg/dL LAB CHEMISTRY METHOD 12/13/2024 7:19 PM [facility] Non HDL Chol. (LDL+VLDL) 93 <145 mg/dL LAB CHE[facility]STR[facility] METHOD [facility] Chol/HDL Ratio 3.3 0.0 - 4.4 LAB CHEMISTRY METHOD 12/13/2024 7:19 PM [facility] Blood Venous blood specimen / Unknown Venipuncture / Unknown 12/13/2024 4:55 PM EDT 12/13/2024 4:55 PM EDT Baylee MURRAY LAB BLOOD ORDERABLES Fi nal Result [facility] [address] [place] [address], * Basic metabolic panel (12/13/2024 4:55 PM EDT) Sodium 139 133 - 145 mmol/L LAB CHEMISTRY METHOD 12/13/2024 7:17 PM [facility] Potassium 3.7 3.5 - 5.5 mmol/L LAB CHEMISTRY METHOD 12/13/2024 7:17 PM [facility] Chloride 104 96 - 110 mmol/L LAB CHEMISTRY METHOD 12/13/2024 7:17 PM [facility] CO2 30 21 - 32 mmol/L LAB CHEMISTRY METHOD 12/13/2024 7:17 PM [facility] Anion Gap 5 3 - 11 LAB CHEMISTRY METHOD 12/13/2024 7:17 PM [facility] Glucose 85 70 - 100 mg/dL LAB CHEMISTRY METHOD 12/13/2024 7:17 PM [facility] BUN 14 5 - 25 mg/dL LAB CHEMISTRY METHOD 12/13/2024 7:17 PM [facility] Creatinine 0.95 0.70 - 1.30 mg/dL LAB CHEMISTRY METHOD 12/13/2024 7:17 PM [facility] eGFR 92 >=60 mL/min/1. 73m2 LAB CHEMISTRY METHOD 12/13/2024 7:17 PM [facility] Comment:Calculation based on the Chronic Kidney Disease Epidemiology Collaboration (CKD-EPI) equation refit without adjustment for race. BUN/Creatinine Ratio 14.7 LAB CHEMISTRY METHOD 12/13/2024 7:17 PM [facility] Calcium 9.3 8.5 - 10.5 mg/dL LAB CHEMISTRY METHOD 12/13/2024 7:17 PM [facility] Blood Venous blood specimen / Unknown Venipuncture / Unknown 12/13/2024 4:55 PM EDT 12/13/2024 4:55 PM EDT Baylee MURRAY LAB BLOOD ORDERABLES Fi nal Result [facility] [address] [place] [address], * Colonoscopy (09/29/2018) Colonoscopy Negative, Abstracted Anatomical Region Laterality Modality Other Historical Provider HEALTH MAINTENANCE Final Result * Hepatitis C Screening (07/26/2007) Hepatitis C Screening Abstracted us Historical Provider HEALTH MAINTENANCE Final Result from Last 3 Months or Most Recently Relevant to Health Maintenance Insurance [facility] Care Teams Anesthesiologist Assistant Certified Relationship Specialty Start Date End Date Erik Jovel MD [address] [place] [phone] PCP - General 10/23/05
== END 2025-04-13 15:20 | disposition home or self-care (01) ==
LOC: HO.HPHYS 14:58
PROVIDERS: PCP Internal Medicine; Visit Provider Physical Medicine & Rehabilitation
DX: M51.26 Other intervertebral disc displacement, lumbar region (principal); M54.16 Radiculopathy, lumbar region
CPT/HCPCS: 99214; G2211